=== PATIENT | female | born 1965 | race Caucasian/White ===

== ENCOUNTER 2019-02-03 08:59 | Inpatient (IN) | payer BC ==
--- NOTE | 2019-02-03 09:14 | PDOC ---
History of Present Illness - General Chief Complaint: Pain Stated Complaint: ABD PAIN Time Seen by Provider: 02/03/19 09:09 History Source: Patient Exam Limitations: No Limitations - History of Present Illness Initial Comments: 02/03/19 09:14 HPI 53 YOF with h/o Gerd, RLS presenting with generalized abdominal pain x 9 days, + bloating, loose watery stools. beginning last night, her abdominal pain worsened , after eating ukrainian food with friends, localizing more to LLQ, nonradiating, constant 8/10. A/w subjective chills and sweats. she took ibuprofen this morning with some relief able to pass gas, last BM yesterday went to PCP about 3 days ago, for surgical clearance for meniscal tear repair - at that time given reassurance, recommended Gasx, without relief. LMP 1 week ago, perimenopausal. not sexually active Denies chest pain, SOB, palpitation, dizziness, weakness, N, V, bladder and bowel problems, focal weakness/paresthesias, leg swelling/pain, rash. No sick contacts or travel. No new changes in medications. ?suspicious food intake Allergies: None Past Medical History: GERD, restless leg syndrome. PSH: C section Social history: Lives with family. No tobacco, ETOH or drug use. Meds: as documented in EMR Family history: noncontributory PMD: DiCarino Review of systems Constitutional: +subjective fevers and chills. No weakness HEENT: no headache or dizziness. No congestion. No visual/hearing disturbances. CVS: no cp or syncope. Resp: no sob. No cough. Gastrointestinal: +abdominal pain, nausea, vomiting, diarrhea. no bloody stools. Genitourinary: no urinary sx, hematuria. no urinary urgency, frequency or dysuria. MUSCULOSKELETAL: No joint pain and swelling. No neck or back pain. SKIN: no redness or skin changes, no discharge, no rash. No wounds. Hematologic: no easy bruising/bleeding. NEUROLOGIC: No headache, dizziness, LOC or altered mental status. No weakness, numbness or tingling. Allergic/Immunologic: no allergies All other systems reviewed and negative, or as documented in HPI. Physical exam General: malaised appearing, awake and alert, NAD. HEENT: NCAT, PERRL, EOMI, clear conjunctiva, anicteric, moist mucus membranes, clear oropharynx, no oral lesions.. Neck: neck supple, FROM Resp: CTAB, normal and even respirations, no respiratory distress CVS: +tachycardic, no murmurs, 2+ peripheral pulses throughout, no peripheral edema Abdomen: soft,obese, +LLQ TTP, no rebound or guarding. no CVAT. no mcburny's point tenderness. Back: nontender, normal inspection and ROM MSK: no edema, VELÁZQUEZ x4, ROM intact. No clubbing or cyanosis. normal bulk and tone. Extremities: no calf tenderness Neuro: alert, oriented appropriately Psych: Calm and cooperative Skin: warm and well perfused, cap refill <2 sec, normal color, no rash or skin discoloration. 02/03/19 10:02 02/03/19 11:07 02/03/19 12:11 02/03/19 12:13 Past History - Past Medical History Allergies/Adverse Reactions: Allergies Allergy/AdvReac Type Severity Reaction Status Date / Time No Known Allergies Allergy Verified 02/03/19 09:15 Home Medications: Ambulatory Orders Pantoprazole Sodium [Protonix -] 40 mg PO DAILY 02/03/19 Heart Score/ECG Review #1 ECG reviewed & interpreted by me at: 09:30 General ECG Interpretation: Sinus Rhythm, Normal Rate, Normal Intervals Compared to previous ECG there are: Previous ECG unavail 02/03/19 11:16 ekg nsr at 95 bpm. nonspecific t wave abnormality, no elevations or depressions. normal intervals, narrow QRS. ED Treatment Course - LABORATORY CBC & Chemistry Diagram: 02/03/19 09:45 02/03/19 09:45 Medical Decision Making - Medical Decision Making 02/03/19 11:12 Vital Signs Temp Pulse Resp BP Pulse Ox 99.0 F 110 H 16 111/59 L 97 02/03/19 09:00 02/03/19 09:00 02/03/19 09:00 02/03/19 09:00 02/03/19 09:00 DDx abdominal pain: Renal colic, biliary colic, metabolic/electrolyte derangements. GERD, PUD, esophageal spasm, pancreatitis, hepatitis, constipation , colitis, gastroenteritis, cholecystitis, UTI, pyelonephritis, ileus, SBO, medication side effect, hernia, appendicitis, diverticulitis, mesenteric ischemia. msk strain, mesenteric adenitis, psoas abscess. perforation, microperf. obstruction. peritonitis. Vital signs reviewed, low-grade temperature with tachycardia however normotensive and breathing comfortably. likely from pain, will treat. Patient with severe pain over the left lower quadrant and she already took ibuprofen this morning. Will give IV fluids, morphine for analgesia and Zofran for nausea and reassess. Basic laboratory results revealed leukocytosis 12.5K with bandemia, electrolytes and creatinine are normal. Amylase is normal, lipase is unavailable. Urinalysis without signs of infection with small protein and some epithelial cells, sedimentation and granular urine casts. 02/03/19 12:11 - CT +acute sigmoid diverticulitis with abscess formation, 4x3cm in size. surgery cs with Dr Mckeon service, spoke with Dr Hood - recommended IR drainage for the moderately sized abscess, IV abx and close monitoring/reassessment. IV Zosyn given for complicated abdominal infection with the abscess additional blood cultures and lactic drawn [facility], medical and surgical management, observation, IVF, pain control and abx. transfer to [facility] for admission warranted where IR capabilities available admitting to dr Figueroa, s/o to [facility]. 02/03/19 12:39 Discharge - Discharge Information Problems reviewed: Yes Clinical Impression/Diagnosis: Diverticulitis of intestine with abscess Qualifiers: Diverticulitis site: large intestine Diverticulitis bleeding: unspecified bleeding status Qualified Code(s): K57.20 - Diverticulitis of large intestine with perforation and abscess without bleeding Condition: Guarded - Admission Yes - Follow up/Referral Referrals: Brandon Morales [Primary Care Provider] - - Patient Discharge Instructions - Post Discharge Activity
[2019-02-03 10:11] LABS: HEMATOCRIT 38.5 % (32.4-45.2); HEMOGLOBIN 12.7 GM/dl (10.7-15.3); MCH 30.5 pg (25.7-33.7); MEAN CELL VOLUME 92.3 fl (80-96); PLATELET COUNT 243 K/MM3 (134-434); RBC 4.17 M/mm3 (3.60-5.2); RDW 11.8 % (11.6-15.6); WHITE BLOOD COUNT 12.5 K/mm3 (4.0-10.8)
[2019-02-03 10:15] LABS: ALBUMIN 3.7 g/dl (3.4-5.0); BILIRUBIN,TOTAL 0.7 mg/dl (0.2-1); CALCIUM 9.3 mg/dl (8.5-10); CREATININE 0.6 mg/dl (0.55-1.3); POTASSIUM 3.9 mmol/L (3.5-5.1); TOT PROT 6.8 g/dl (6.4-8.2)
[2019-02-03 10:24] LABS: EPITHELIAL CELLS MODERATE /hpf
[2019-02-03 10:26] LABS: URINE AMORPHOUS SEDIMENT 2+
[2019-02-03] MEDS ORDERED: SODIUM CHLORIDE 0.9% 500 ML INFUS.BAG IV ONE (10:40)
[2019-02-03] MEDS ORDERED: morphine CARPU-JECT 4 MG/1 ML DISP.SYRIN IVPUSH ONE ×2 (10:40→13:46)
[2019-02-03] MEDS ORDERED: ONDANSETRON 4 MG/2 ML VIAL IVPUSH ONE (10:40)
[2019-02-03] MEDS ORDERED: morphine SULFATE 4 MG/ML VIAL ONE ×2 (10:41→13:47)
[2019-02-03] MEDS ORDERED: ONDANSETRON 4 MG/2 ML VIAL ONE (10:42)
[2019-02-03 10:49] LABS: PLATELET ESTIMATE ADEQUATE
[2019-02-03] MEDS ORDERED: ACETAMINOPHEN 1000 MG/100 ML VIAL (NON FORMULARY) IVPB ONE (11:31)
[2019-02-03] MEDS ORDERED: ACETAMINOPHEN INJECTION 100 ML IVPB ONE (11:33)
[2019-02-03] MEDS ORDERED: PIPERACILLIN/TAZOB 4.5 GM 4.5 GM in DEXTROSE 5%-WATER 100 ML IVPB ONE (11:46)
[2019-02-03] MEDS ORDERED: PIPERACILLIN/TAZOBACTAM 4.5 GM VIAL IVPB ONE (12:16)
--- NOTE | 2019-02-03 12:25 | PN ---
Progress Note (short form) - Note Progress Note: surgery Full eval to follow. 53f with ct showing presumed complicated diverticulitis with 4cm abscess. recommend IR eval for drainage of abscess. no fever. no free air. recommend zosyn abx. keep npo.
--- NOTE | 2019-02-03 13:00 | HP ---
CHIEF COMPLAINT:Abdominal pain PCP: HISTORY OF PRESENT ILLNESS: Joceline Soto is a 53 yr old F, medical condition h/o Gerd, RLS presented to ED with generalized abdominal pain x 9 days, +bloating, loose watery stools last night. pt reports seeing PCP last week, was told to take Gas-x, with no improvement, pain worsened after eating Latvian food last night. CT scan reviewed by surgery, and IR, pt will be transferred to [facility], if needed for IR drainage. ER course was notable for: (1)WBC 12.5 (2)CT abd/pelvis: 4.1x2.9 diverticulitis, abscess vs ovarian cyst (3) Recent Travel: PAST MEDICAL HISTORY: GERD, RLS PAST SURGICAL HISTORY: , Melonoma removal 2013 Social History: Smoking:denies Alcohol:denies Drugs: denies Allergies No Known Allergies Allergy (Verified 02/03/19 09:15) HOME MEDICATIONS: Home Medications Medication Instructions Recorded Pantoprazole Sodium [Protonix -] 40 mg PO DAILY 02/03/19 REVIEW OF SYSTEMS CONSTITUTIONAL: +chills Absent: fever, diaphoresis, generalized weakness, malaise, loss of appetite, weight change HEENT: Absent: rhinorrhea, nasal congestion, throat pain, throat swelling, difficulty swallowing, mouth swelling, ear pain, eye pain, visual changes CARDIOVASCULAR: Absent: chest pain, syncope, palpitations, irregular heart rate, lightheadedness , peripheral edema RESPIRATORY: Absent: cough, shortness of breath, dyspnea with exertion, orthopnea, wheezing, stridor, hemoptysis GASTROINTESTINAL:+abd pain, diarrhea x1 Absent: abdominal distension, nausea, vomiting, constipation, melena, hematochezia GENITOURINARY: Absent: dysuria, frequency, urgency, hesitancy, hematuria, flank pain, genital pain MUSCULOSKELETAL: Absent: myalgia, arthralgia, joint swelling, back pain, neck pain SKIN: Absent: rash, itching, pallor HEMATOLOGIC/IMMUNOLOGIC: Absent: easy bleeding, easy bruising, lymphadenopathy, frequent infections ENDOCRINE: Absent: unexplained weight gain, unexplained weight loss, heat intolerance, cold intolerance NEUROLOGIC: Absent: headache, focal weakness or paresthesias, dizziness, unsteady gait, seizure, mental status changes, bladder or bowel incontinence PSYCHIATRIC: Absent: anxiety, depression, suicidal or homicidal ideation, hallucinations. PHYSICAL EXAMINATION Vital Signs - 24 hr 02/03/19 02/03/19 09:00 11:20 Temperature 99.0 F 99.8 F H Pulse Rate 110 H Pulse Rate [ 94 H Left Radial] Respiratory 16 16 Rate Blood Pressure 111/59 L Blood Pressure 142/78 [Right Arm] O2 Sat by Pulse 97 95 Oximetry (%) GENERAL: Awake, alert, and fully oriented, in no acute distress. HEAD: Normal with no signs of trauma. EYES: Pupils equal, round and reactive to light, extraocular movements intact, sclera anicteric, conjunctiva clear. No lid lag. EARS, NOSE, THROAT: Ears normal, nares patent, oropharynx clear without exudates. Moist mucous membranes. NECK: Normal range of motion, supple without lymphadenopathy, JVD, or masses. LUNGS: Breath sounds equal, clear to auscultation bilaterally. No wheezes, and no crackles. No accessory muscle use. HEART: Regular rate and rhythm, normal S1 and S2 without murmur, rub or gallop. ABDOMEN: Soft, nontender, not distended, normoactive bowel sounds, no guarding, no rebound, no masses. No hepatomegaly or splenomegaly. MUSCULOSKELETAL: Normal range of motion at all joints. No bony deformities or tenderness. No CVA tenderness. UPPER EXTREMITIES: 2+ pulses, warm, well-perfused. No cyanosis. No clubbing. No peripheral edema. LOWER EXTREMITIES: 2+ pulses, warm, well-perfused. No calf tenderness. No peripheral edema. NEUROLOGICAL: Cranial nerves II-XII intact. Normal speech. Normal gait. PSYCHIATRIC: Cooperative. Good eye contact. Appropriate mood and affect. SKIN: Warm, dry, normal turgor, no rashes or lesions noted, normal capillary refill. Laboratory Results - last 24 hr 02/03/19 02/03/19 02/03/19 09:32 09:45 09:45 WBC RBC Hgb Hct MCV MCH MCHC RDW Plt Count MPV Absolute Neuts (auto) Neutrophils % Neutrophils % (Manual) Band Neutrophils % Lymphocytes % Lymphocytes % (Manual) Monocytes % (Manual) Basophils % (Manual) Platelet Estimate Sodium Potassium Chloride Carbon Dioxide Anion Gap BUN Creatinine Est GFR (CKD-EPI)AfAm Est GFR (CKD-EPI)NonAf Random Glucose Calcium Total Bilirubin AST ALT Alkaline Phosphatase Creatine Kinase Troponin I < 0.03 Total Protein Albumin Total Amylase 29 Urine Color Yellow Urine Appearance Clear Urine pH 7.0 Urine Protein 1+ H Urine Glucose (UA) Negative Urine Ketones Negative Urine Blood Trace-intact Urine Nitrite Negative Urine Bilirubin Negative Urine Urobilinogen 0.2 Ur Leukocyte Esterase Negative Urine RBC 2-5 Urine WBC 0-2 Ur Transition Epith Cell Moderate Amorphous Sediment 2+ Urine Casts Coarsly granular 0-1 02/03/19 02/03/19 09:45 09:45 WBC 12.5 H RBC 4.17 Hgb 12.7 Hct 38.5 MCV 92.3 MCH 30.5 MCHC 33.0 RDW 11.8 Plt Count 243 MPV 9.0 Absolute Neuts (auto) 11.2 Neutrophils % No Result Required. Neutrophils % (Manual) 72.0 Band Neutrophils % 16.0 H Lymphocytes % No Result Required. Lymphocytes % (Manual) 4.0 L Monocytes % (Manual) 6 Basophils % (Manual) 2.0 Platelet Estimate Adequate Sodium 134 L Potassium 3.9 Chloride 104 Carbon Dioxide 21 Anion Gap 9 BUN 11.0 Creatinine 0.6 Est GFR (CKD-EPI)AfAm 122.32 Est GFR (CKD-EPI)NonAf 105.54 Random Glucose 144 H Calcium 9.3 Total Bilirubin 0.7 AST 16 ALT 17 Alkaline Phosphatase 96 Creatine Kinase 75 Troponin I Total Protein 6.8 Albumin 3.7 Total Amylase Urine Color Urine Appearance Urine pH Urine Protein Urine Glucose (UA) Urine Ketones Urine Blood Urine Nitrite Urine Bilirubin Urine Urobilinogen Ur Leukocyte Esterase Urine RBC Urine WBC Ur Transition Epith Cell Amorphous Sediment Urine Casts ASSESSMENT/PLAN: Joceline Soto is a 53 yr old F, medical condition h/o Gerd, RLS admitted for Admitting Diagnosis Diverticulitis w/abscess vs ovarian cyst Chronic Condition GERD A/P: #Diverticulitis w/abscess vs ovarian cyst -Trf to [facility] -NPO -IVF -pain mgt, antiemetics -IV zosyn -surgery note appreciated -CT reviewed by IR-no acute IR or surgical intervention at this time -blood cx pending -Pelvic US #GERD -IV PPI FEN Fluid: IVF electrolytes replete PRN Nutrition: NPO Dispo: requires inpatient treatment Visit type - Emergency Visit Emergency Visit: Yes Care time: The patient presented to the Emergency Department on the above date and was hospitalized for further evaluation of their emergent condition. - New Patient This patient is new to me today: Yes Date on this admission: 02/03/19 - Critical Care Critical Care patient: No
[2019-02-03] MEDS ORDERED: SODIUM CHLORIDE 1,000 ML IV SCH (13:30)
[2019-02-03 16:56] VITALS: BMI 35.3
[2019-02-03] MEDS: MORPHINE SULFATE 2 MG/ML VIAL IVPUSH PRN ×2 (17:11→22:38)
[2019-02-03] MEDS ORDERED: PIPERACILLIN/TAZOB 2.25 GM 2.25 GM in DEXTROSE 5%-WATER - 50 ML IVPB SCH (18:00)
[2019-02-03] MEDS ORDERED: DEXTROSE 5%-WATER - 50 ML IVPB ONE (19:56)
[2019-02-03] MEDS ORDERED: PIPERACILLIN/TAZOBACTAM 2.25 GM VIAL IVPB ONE (19:56)
[2019-02-03] MEDS: ACETAMINOPHEN 325 MG TABLET (FP) PO PRN (20:01)
[2019-02-03] MEDS: PIPERACILLIN/TAZOB 2.25 GM 2.25 GM in DEXTROSE 5%-WATER - 50 ML IVPB SCH (20:02)
[2019-02-03] MEDS: HEPARIN NA (PORCINE) 5,000 UNITS/ML 1ML VIAL SQ SCH (21:10)
[2019-02-04] MEDS: ACETAMINOPHEN 325 MG TABLET (FP) PO PRN ×4 (01:02→19:52)
[2019-02-04] MEDS ORDERED: PIPERACILLIN/TAZOBACTAM 2.25 GM VIAL IVPB ONE ×2 (02:31→12:19)
[2019-02-04] MEDS ORDERED: DEXTROSE 5%-WATER - 50 ML IVPB ONE ×3 (02:32→17:59)
[2019-02-04] MEDS: PIPERACILLIN/TAZOB 2.25 GM 2.25 GM in DEXTROSE 5%-WATER - 50 ML IVPB SCH ×2 (03:04→12:28)
[2019-02-04] MEDS: morphine CARPU-JECT 2 MG/1 ML DISP.SYRIN IVPUSH PRN ×4 (05:51→23:24)
[2019-02-04 08:14] LABS: EOS % 0.7 % (0-4.5); HEMATOCRIT 31.9 % (32.4-45.2); HEMOGLOBIN 11.3 GM/dl (10.7-15.3); LYMPH % 10.3 % (8-40); MCH 32.6 pg (25.7-33.7); MCHC 35.2 g/dl (32.0-36.0); MEAN CELL VOLUME 92.5 fl (80-96); MEAN PLT VOLUME 8.8 fl (7.5-11.1); MONO % 6.6 % (3.8-10.2); NEUT % 82.4 % (42.8-82.8); PLATELET COUNT 194 K/MM3 (134-434); RBC 3.45 M/mm3 (3.60-5.2); RDW 11.7 % (11.6-15.6); WHITE BLOOD COUNT 10.3 K/mm3 (4.0-10.8)
[2019-02-04 08:25] LABS: ALBUMIN 2.7 g/dl (3.4-5.0); BILIRUBIN,TOTAL 0.8 mg/dl (0.2-1); CALCIUM 7.8 mg/dl (8.5-10); CREATININE 0.6 mg/dl (0.55-1.3); MAGNESIUM 1.7 mg/dL (1.8-2.4); POTASSIUM 3.7 mmol/L (3.5-5.1); TOT PROT 5.4 g/dl (6.4-8.2)
--- NOTE | 2019-02-04 08:27 | PN ---
Physical Exam: SUBJECTIVE: Patient seen and examined. No further CP. No O2 use or desats. Refuses further tele, refuses pred. OK to DC per pulm. Unlikely pericarditis based on EKG prelim CT. 10 sys ROS done and negative aside from HPI OBJECTIVE: Vital Signs Period Temp Pulse Resp BP Sys/Flor Pulse Ox Last 24 Hr 98.5 F-99.8 F 78-110 15-19 100-142/51-78 95-97 GENERAL: The patient is awake, alert, and fully oriented, in no acute distress. HEAD: Normal with no signs of trauma. EYES: PERRL, extraocular movements intact, sclera anicteric, conjunctiva clear. No ptosis. ENT: Ears normal, nares patent, oropharynx clear without exudates, moist mucous membranes. NECK: Trachea midline, full range of motion, supple. LUNGS: Breath sounds equal, clear to auscultation bilaterally, no wheezes, no crackles, no accessory muscle use. HEART: Regular rate and rhythm, S1, S2 without murmur, rub or gallop. ABDOMEN: Soft, nontender, nondistended, normoactive bowel sounds, no guarding, no rebound EXTREMITIES: 2+ pulses, warm, well-perfused, no edema. NEUROLOGICAL: Cranial nerves II through XII grossly intact. Normal speech, gait not observed. PSYCH: Normal mood, normal affect. SKIN: Warm, dry, normal turgor, no rashes or lesions noted Laboratory Results - last 24 hr 02/03/19 02/03/19 02/03/19 09:32 09:45 09:45 WBC RBC Hgb Hct MCV MCH MCHC RDW Plt Count MPV Absolute Neuts (auto) Neutrophils % Neutrophils % (Manual) Band Neutrophils % Lymphocytes % Lymphocytes % (Manual) Monocytes % (Manual) Basophils % (Manual) Platelet Estimate Sodium Potassium Chloride Carbon Dioxide Anion Gap BUN Creatinine Est GFR (CKD-EPI)AfAm Est GFR (CKD-EPI)NonAf Random Glucose Lactic Acid Calcium Total Bilirubin AST ALT Alkaline Phosphatase Creatine Kinase Troponin I < 0.03 Total Protein Albumin Total Amylase 29 Urine Color Yellow Urine Appearance Clear Urine pH 7.0 Urine Protein 1+ H Urine Glucose (UA) Negative Urine Ketones Negative Urine Blood Trace-intact Urine Nitrite Negative Urine Bilirubin Negative Urine Urobilinogen 0.2 Ur Leukocyte Esterase Negative Urine RBC 2-5 Urine WBC 0-2 Ur Transition Epith Cell Moderate Amorphous Sediment 2+ Urine Casts Coarsly granular 0-1 02/03/19 02/03/19 02/03/19 09:45 09:45 12:10 WBC 12.5 H RBC 4.17 Hgb 12.7 Hct 38.5 MCV 92.3 MCH 30.5 MCHC 33.0 RDW 11.8 Plt Count 243 MPV 9.0 Absolute Neuts (auto) 11.2 Neutrophils % No Result Required. Neutrophils % (Manual) 72.0 Band Neutrophils % 16.0 H Lymphocytes % No Result Required. Lymphocytes % (Manual) 4.0 L Monocytes % (Manual) 6 Basophils % (Manual) 2.0 Platelet Estimate Adequate Sodium 134 L Potassium 3.9 Chloride 104 Carbon Dioxide 21 Anion Gap 9 BUN 11.0 Creatinine 0.6 Est GFR (CKD-EPI)AfAm 122.32 Est GFR (CKD-EPI)NonAf 105.54 Random Glucose 144 H Lactic Acid 1.0 Calcium 9.3 Total Bilirubin 0.7 AST 16 ALT 17 Alkaline Phosphatase 96 Creatine Kinase 75 Troponin I Total Protein 6.8 Albumin 3.7 Total Amylase Urine Color Urine Appearance Urine pH Urine Protein Urine Glucose (UA) Urine Ketones Urine Blood Urine Nitrite Urine Bilirubin Urine Urobilinogen Ur Leukocyte Esterase Urine RBC Urine WBC Ur Transition Epith Cell Amorphous Sediment Urine Casts Active Medications Generic Name Dose Route Start Last Admin Trade Name Freq PRN Reason Stop Dose Admin Acetaminophen 650 mg 02/03/19 15:40 02/04/19 06:17 Tylenol - PO 650 mg Q6H PRN Administration FEVER Heparin Sodium (Porcine) 5,000 unit 02/03/19 22:00 02/03/19 21:10 Heparin - SQ 5,000 unit BID MARILUZ Administration Sodium Chloride 1,000 mls @ 100 mls/hr 02/03/19 13:30 02/03/19 13:15 Normal Saline - IV 100 mls/hr ASDIR MARILUZ Administration Piperacillin Sod/Tazobactam 50 mls @ 100 mls/hr 02/03/19 18:00 Sod 2.25 gm/ Dextrose IVPB Q8H-IV MARILUZ Protocol Piperacillin Sod/Tazobactam 50 mls @ 100 mls/hr 02/03/19 20:00 02/04/19 03:04 Sod 2.25 gm/ Dextrose IVPB 02/04/19 12:29 100 mls/hr Q8H MARILUZ Administration Protocol Morphine Sulfate 2 mg 02/03/19 22:32 02/04/19 05:51 Morphine Injection - IVPUSH 2 mg Q4H PRN Administration PAIN LEVEL 6-10 Pantoprazole Sodium 40 mg 02/04/19 10:00 Protonix Iv IVPUSH DAILY MARILUZ EKG reviewed Tele reviewed CXR reviewed CT pending final read Echo pending ASSESSMENT/PLAN: Presents with atypical CP (resolved) with concerns of pericarditis (less likely based on clinical picture). Likely underlying COPD. R/O pleurisy associated with PNA (would be CAP-QTc OK). No home PFTs, no home digital marketing specialist. Chronic leukocytosis and stated RF+; checking and will offer rheum consult with Dr. Dixon. She declined steroids and scheduled nebs for likely underlying COPD and has albuterol available at home that is not used up and within expiry. Problems include: -Atypical CP, resolved. Less likely ACS, pericarditis. Consider pleurisy. Incentive moose. Declinmes further tele. Not reproducible. FU echo. CE's negative. -Likely CAP; FU final CT read. -Morbid Obesity (BMI >35; counseled) -Tobacco Abuse (Counsled) -Stated RA+ (checking ESR CRP BHARAT RF; OFFERED RHEUM CONSULT) -Likely COPD (Has home albuterol available but doesn't like using it; needs OP PFTs. Declined steroid tx. FU final pulm recs) -R/O LEVI -R/O Pickwickian Syndrome Full Code Visit type - Emergency Visit Emergency Visit: Yes ED Registration Date: 02/03/19 Care time: The patient presented to the Emergency Department on the above date and was hospitalized for further evaluation of their emergent condition. - New Patient This patient is new to me today: Yes Date on this admission: 02/04/19 - Critical Care Critical Care patient: No
[2019-02-04 09:36] LABS: INR 1.52 (0.82-1.09); PROTHROMBIN TIME (PATIENT) 16.9 SEC (10.2-13.0)
[2019-02-04] MEDS ORDERED: MAGNESIUM SULF 50% (8.12 MEQ/2 ML-1 GM VIAL) IVPB ONE (09:45)
[2019-02-04] MEDS: LACTATED RINGERS SOLUTION 1,000 ML/1,000 ML INFUS.BAG IV SCH (09:56)
[2019-02-04] MEDS: PANTOPRAZOLE SODIUM 40 MG VIAL IVPUSH SCH (10:05)
[2019-02-04] MEDS: HEPARIN NA (PORCINE) 5,000 UNITS/ML 1ML VIAL SQ SCH ×2 (10:05→21:04)
--- NOTE | 2019-02-04 11:57 | EKG ---
Test Reason : Blood Pressure : / mmHG Vent. Rate : 095 BPM Atrial Rate : 095 BPM P-R Int : 158 ms QRS Dur : 092 ms QT Int : 338 ms P-R-T Axes : 056 013 029 degrees QTc Int : 424 ms NORMAL SINUS RHYTHM NONSPECIFIC ST ABNORMALITY ABNORMAL ECG NO PREVIOUS ECGS AVAILABLE Confirmed by HETAL MERLOS, MARY ([id number]) on 02/04/2019 11:57:40 AM Referred By: NICK HOLT Confirmed By:MARY FONG MD
--- NOTE | 2019-02-04 14:47 | CON.ID ---
Consult Consult Specialty:: infectious diseases Referred by:: Reason for Consultation:: ac diverticulitis - History of Present Illness Chief Complaint: abd pain left lower quadrant History of Present Illness: 53 yr old F, medical condition h/o Gerd, RLS admitted because of ongoing left lower quadrant pain for 9 days pt reports seeing PCP last week, was told to take Gas-x, with no improvement, pain worsened after eating Spanish food last night. patient mentions that she became very uncomfortable currently continues to hav abd pain with essentially no gi function was worked up and found to ahve ac diverticulitis with abscess formation - History Source History Provided By: Patient Limitations to Obtaining History: No Limitations - Past Medical History ...: No - Alcohol/Substance Use Hx Alcohol Use: No - Smoking History Smoking history: Former smoker Have you smoked in the past 12 months: No If you are a former smoker, when did you quit?: 2005 Home Medications - Allergies Allergies/Adverse Reactions: Allergies Allergy/AdvReac Type Severity Reaction Status Date / Time No Known Allergies Allergy Verified 02/03/19 09:15 - Home Medications Home Medications: Ambulatory Orders Pantoprazole Sodium [Protonix -] 40 mg PO DAILY 02/03/19 Review of Systems - Review of Systems Constitutional: reports: No Symptoms Eyes: reports: No Symptoms HENT: reports: No Symptoms Neck: reports: No Symptoms Cardiovascular: reports: No Symptoms Respiratory: reports: No Symptoms Gastrointestinal: reports: Abdominal Pain, Diarrhea Genitourinary: reports: No Symptoms Musculoskeletal: reports: No Symptoms Integumentary: reports: No Symptoms Neurological: reports: No Symptoms Endocrine: reports: No Symptoms Hematology/Lymphatic: reports: No Symptoms Psychiatric: reports: No Symptoms Physical Exam Vital Signs: Vital Signs Temperature 99.9 F H 02/04/19 13:58 Pulse Rate 89 02/04/19 13:58 Respiratory Rate 18 02/04/19 13:58 Blood Pressure 107/62 02/04/19 13:58 O2 Sat by Pulse Oximetry (%) 98 02/04/19 13:58 Constitutional: Yes: Well Nourished, Calm, Mild Distress Eyes: Yes: Conjunctiva Clear HENT: Yes: Atraumatic, Normocephalic Neck: Yes: Supple, Trachea Midline Cardiovascular: Yes: Regular Rate and Rhythm Respiratory: Yes: Regular, CTA Bilaterally Gastrointestinal: Yes: Soft, Distention, Tenderness, Other (absent bowel sounds) Musculoskeletal: Yes: WNL Extremities: Yes: WNL Neurological: Yes: Alert, Oriented Psychiatric: Yes: Alert, Oriented Labs: CBC, BMP 02/04/19 07:05 02/04/19 07:05 Imaging - Results Chest X-ray: Report Reviewed, Image Reviewed Cat Scan: Report Reviewed, Image Reviewed Ultrasound: Report Reviewed, Image Reviewed Assessment/Plan patients ct scan seen, will continue zosyn npo surgery ahs seen the patient monitor wbc rest as per the team
[2019-02-04] MEDS ORDERED: PIPERACILLIN/TAZOBACTAM 3.375 GM VIAL IVPB ONE (17:59)
--- NOTE | 2019-02-04 18:23 | CONS ---
DATE OF CONSULTATION: 02/04/2019 REASON FOR CONSULTATION: Complicated diverticulitis. This is an emergency consultation at the request of the emergency room physician. This is a 53-year-old female who presented to [facility] complaining of 9 days of abdominal pain that began on the left side in the lower portion, that is now in the lower abdomen. She admits to bloating. Denies diarrhea. Denies constipation. Denies blood in her stool. She came to the [facility] where she had a CAT scan of her abdomen and pelvis which showed an inflamed sigmoid colon with multiple diverticula, plus also a complex collection next to the sigmoid colon which was felt to either be a complex ovarian cyst or a diverticular abscess. She was admitted and started on antibiotic. Her pain has improved, but still persists, and an ultrasound suggested that the collection was actually an ovarian cyst and not a diverticular abscess. The patient has had no fever, and she has been kept n.p.o. PAST MEDICAL HISTORY: Significant for gastroesophageal reflux disease and restless leg syndrome. PAST SURGICAL HISTORY: Includes a section and melanoma surgery for cancer. SOCIAL HISTORY: Negative for tobacco, negative for alcohol. ALLERGIES: She has no known drug allergies. HOME MEDICATION: Includes Protonix. REVIEW OF SYSTEMS: General: Denies fatigue or malaise. Cardiac: Denies chest pain or palpitations. Respiratory: No shortness of breath or wheeze. Gastrointestinal: As in HPI. Denies nausea. Denies vomiting. Admits to intermittent abdominal pain that then dissipates with pain medication. Genitourinary: Denies dysuria. Musculoskeletal: Denies joint pain. Psychiatric: Denies anxiety, depression, hearing voices. PHYSICAL EXAMINATION: General: This is an obese, 53-year-old female in no distress. Vital Signs: She is afebrile with a T-max of 99.9. HEENT: Her head is normocephalic. Her sclerae are anicteric. Neck: Supple. Chest: Clear. Abdomen: Soft. She has mild left lower quadrant tenderness and moderate right lower quadrant tenderness. She has mild rebound bilateral and mild guarding. She has a well-healed Pfannenstiel incision. She has no obvious hernias. She is not distended. Extremities: Trace edema. LABORATORY DATA: Her white blood cell count is 10.3. It was 12.5 on admission. She had elevated bands on admission at 16. Her chemistries are unremarkable. Her urinalysis has only 0-2 white blood cells. On review of her imaging, she has a CAT scan of her abdomen and pelvis which was as stated in HPI. She also has a pelvic ultrasound which shows an enlarged left ovary and a poorly visualized cyst measuring 2.3 x 1.5 cm. This is a change from prior evaluation of the cyst on CAT scan, and the radiologist cannot rule out a complex cyst and recommends MRI. ASSESSMENT: This is a 53-year-old female with a [id number]-8-week history of lower abdominal pain. She has peritoneal findings in the lower abdomen. She has a CAT scan consistent with possible complicated diverticulitis, but ultrasound suggests that this is actually just uncomplicated diverticulitis with a possible complex adnexal cyst. At this point, since this is her first attack of diverticulitis, would not recommend elective surgery, especially since this is not confirmed to be complex. Patient currently seems to be responding to antibiotics. I would recommend that she be kept n.p.o. until her tenderness resolves. She will likely need several days of intravenous antibiotics and then 1 week of Augmentin. She has not had a colonoscopy in the past, and therefore, there is a possibility that this is actually a malignancy. Patient understands this. She realizes that she will need a colonoscopy in 6 weeks' time. She has also been offered exploratory surgery to confirm that this is not a colon cancer and to better evaluate the complex collection next to the sigmoid colon and she declines. She understands that surgery would be done open and would require a colostomy. She is willing to risk the delay in diagnosis in order to hope to avoid a laparotomy and a colostomy. At this point, she is non-toxic. Again, recommend keep n.p.o., continue IV Zosyn. Once her tenderness resolves, she can be started on a liquid diet and likely discharged at that point if she is tolerating. She should stay on liquids for a week with 1 week of Augmentin and then needs an elective colonoscopy. Currently, she will be treated for uncomplicated diverticulitis, and there are no plans for acute inpatient surgical intervention. Since this has not been shown to be a complicated case and this is first episode, would not recommend elective sigmoid colectomy as well. As far as the ovary, that is to be managed by the medical and PROMOTIONS ASSISTANT services. DO KYMBERLY KEENAN/[id number]
[2019-02-04] MEDS: PIPERACILLIN/TAZOB 3.375 GM 3.375 GM in DEXTROSE 5%-WATER - 50 ML IVPB SCH (18:33)
--- NOTE | 2019-02-04 18:53 | PN ---
Physical Exam: SUBJECTIVE: Patient seen and examined; persistent abdominal pain but nothing makes it better or worse except APAP IV; she states that the morphine was less helpful. Pending transvaginal US and further surgery eval. No new complaints noted; denies CP, SOB, etc. If positive US findings may need PHARMACY TECHNICIAN ASSISTANT referral. Also has never had C-Scope so will need OP study in 6-8 weeks and will need FU with GI arranged prior to DC. No new issues per nursing. Stable. 10 sys ROS done and negative aside from HPI OBJECTIVE: Vital Signs Period Temp Pulse Resp BP Sys/Flor Pulse Ox Last 24 Hr 98.5 F-99.9 F 84-93 16-19 103-135/52-69 96-98 GENERAL: The patient is awake, alert, and fully oriented, in no acute distress. HEAD: Normal with no signs of trauma. EYES: PERRL, extraocular movements intact, sclera anicteric, conjunctiva clear. No ptosis. ENT: Ears normal, nares patent, oropharynx clear without exudates, moist mucous membranes. NECK: Trachea midline, full range of motion, supple. LUNGS: Breath sounds equal, clear to auscultation bilaterally HEART: Regular rate and rhythm, S1, S2 without murmur, rub or gallop. ABDOMEN: Soft, TTP lower quadrants. No rebound or guarding. EXTREMITIES: 2+ pulses, warm, well-perfused, no edema. NEUROLOGICAL: Cranial nerves II through XII grossly intact PSYCH: Normal mood, normal affect. SKIN: Warm, dry, normal turgor, no rashes or lesions noted Laboratory Results - last 24 hr 02/04/19 02/04/19 02/04/19 07:05 07:05 08:57 WBC 10.3 RBC 3.45 L Hgb 11.3 Hct 31.9 L D MCV 92.5 MCH 32.6 MCHC 35.2 RDW 11.7 Plt Count 194 MPV 8.8 Absolute Neuts (auto) 8.4 Neutrophils % 82.4 Lymphocytes % 10.3 Monocytes % 6.6 Eosinophils % 0.7 Basophils % 0.0 ESR PT with INR 16.9 H INR 1.52 H Sodium 137 Potassium 3.7 Chloride 105 Carbon Dioxide 23 Anion Gap 9 BUN 7.0 Creatinine 0.6 Est GFR (CKD-EPI)AfAm 122.32 Est GFR (CKD-EPI)NonAf 105.54 Random Glucose 98 Calcium 7.8 L Magnesium 1.7 L Total Bilirubin 0.8 AST 11 L ALT 13 Alkaline Phosphatase 72 D C-Reactive Protein Total Protein 5.4 L Albumin 2.7 L Blood Type Antibody Screen 02/04/19 02/04/19 02/04/19 08:57 08:57 08:57 WBC RBC Hgb Hct MCV MCH MCHC RDW Plt Count MPV Absolute Neuts (auto) Neutrophils % Lymphocytes % Monocytes % Eosinophils % Basophils % ESR 34 H PT with INR INR Sodium Potassium Chloride Carbon Dioxide Anion Gap BUN Creatinine Est GFR (CKD-EPI)AfAm Est GFR (CKD-EPI)NonAf Random Glucose Calcium Magnesium Total Bilirubin AST ALT Alkaline Phosphatase C-Reactive Protein 19.1 H Total Protein Albumin Blood Type O POSITIVE Antibody Screen Negative Active Medications Generic Name Dose Route Start Last Admin Trade Name Freq PRN Reason Stop Dose Admin Acetaminophen 650 mg 02/03/19 15:40 02/04/19 12:53 Tylenol - PO 650 mg Q6H PRN Administration FEVER Heparin Sodium (Porcine) 5,000 unit 02/03/19 22:00 02/04/19 10:05 Heparin - SQ 5,000 unit BID MARILUZ Administration Lactated Ringer's 1,000 ml in 1,000 mls @ 100 mls/hr 02/04/19 08:45 02/04/19 09:56 Lactated Ringers Solution IV 100 mls/hr ASDIR MARILUZ Administration Piperacillin Sod/Tazobactam 50 mls @ 100 mls/hr 02/04/19 18:00 02/04/19 18:33 Sod 3.375 gm/ Dextrose IVPB 100 mls/hr Q8H-IV MARILUZ Administration Protocol Morphine Sulfate 2 mg 02/03/19 22:32 02/04/19 17:10 Morphine Injection - IVPUSH 2 mg Q4H PRN Administration PAIN LEVEL 6-10 Pantoprazole Sodium 40 mg 02/04/19 10:00 02/04/19 10:05 Protonix Iv IVPUSH 40 mg DAILY MARILUZ Administration TVU final read pending; complete Pelvic US pending RUQ US pending-likely steatosis ASSESSMENT/PLAN: Patient presents with abdominal pain and is found to have diverticulitis with abscess vs. uncomplicated diverticulitis with likely ovarian cyst, etc. Needs better delineation of anatomy so will FU US studies. No need to repeat CT at this juncture. IV APAP for pain control. If abnormalities noted on US will consult OBGYN. Problems include: -Diverticulitis (Initial episode +/- abscess; sgy following. IV abx then PO; advance diet per surgical services. Monitor CBC, coags. Type and Screen if going to OR. R/O pelvic etiology of abscess) -Ovarian cyst vs. 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 Full Code Visit type - Emergency Visit Emergency Visit: Yes ED Registration Date: 02/03/19 Care time: The patient presented to the Emergency Department on the above date and was hospitalized for further evaluation of their emergent condition. - New Patient This patient is new to me today: Yes Date on this admission: 02/04/19 - Critical Care Critical Care patient: No
[2019-02-05] MEDS ORDERED: PIPERACILLIN/TAZOBACTAM 3.375 GM VIAL IVPB ONE ×3 (01:27→17:15)
[2019-02-05] MEDS ORDERED: DEXTROSE 5%-WATER - 50 ML IVPB ONE ×3 (01:27→17:15)
[2019-02-05] MEDS: PIPERACILLIN/TAZOB 3.375 GM 3.375 GM in DEXTROSE 5%-WATER - 50 ML IVPB SCH ×3 (01:42→17:23)
[2019-02-05] MEDS: ACETAMINOPHEN 325 MG TABLET (FP) PO PRN ×3 (07:13→23:59)
[2019-02-05] MEDS: HEPARIN NA (PORCINE) 5,000 UNITS/ML 1ML VIAL SQ SCH ×2 (09:20→21:15)
[2019-02-05] MEDS: PANTOPRAZOLE SODIUM 40 MG VIAL IVPUSH SCH (09:20)
[2019-02-05] MEDS: LACTATED RINGERS SOLUTION 1,000 ML/1,000 ML INFUS.BAG IV SCH (10:12)
--- NOTE | 2019-02-05 10:33 | PN ---
Progress Note (short form) - Note Progress Note: surgery pt seen and examined. feels better. minimal pain. hungry. some flatus. no bm afebrile abd -soft, mild llq tenderness, minimal rlq tenderness Plan- uncomplicated diverticulitis. cont npo until tenderness resolved. cont iv abx. pt slowly improving. once tenderness resolves would do one week of full liquids. no need for elective resection if medical management successful. possible complex left ovarian cyst with radiology recs fo4 MRI. per medical team.
--- NOTE | 2019-02-05 13:43 | PN ---
Progress Note, Physician History of Present Illness: still very tender feeling a bit better - Current Medication List Current Medications: Active Medications Acetaminophen (Tylenol -) 650 mg PO Q6H PRN PRN Reason: FEVER Last Admin: 02/05/19 07:13 Dose: 650 mg Heparin Sodium (Porcine) (Heparin -) 5,000 unit SQ BID MARILUZ Last Admin: 02/05/19 09:20 Dose: 5,000 unit Lactated Ringer's (Lactated Ringers Solution) 1,000 ml in 1,000 mls @ 100 mls/ hr IV ASDIR MARILUZ Last Admin: 02/05/19 10:12 Dose: 100 mls/hr Piperacillin Sod/Tazobactam (Sod 3.375 gm/ Dextrose) 50 mls @ 100 mls/hr IVPB Q8H-IV MARILUZ; Protocol Last Admin: 02/05/19 09:20 Dose: 100 mls/hr Morphine Sulfate (Morphine Injection -) 2 mg IVPUSH Q4H PRN PRN Reason: PAIN LEVEL 6-10 Last Admin: 02/04/19 23:24 Dose: 2 mg Pantoprazole Sodium (Protonix Iv) 40 mg IVPUSH DAILY [facility] Last Admin: 02/05/19 09:20 Dose: 40 mg - Objective Vital Signs: Vital Signs Temperature 98.7 F 02/05/19 11:20 Pulse Rate 88 02/05/19 11:20 Respiratory Rate 18 02/05/19 11:20 Blood Pressure 129/89 02/05/19 11:20 O2 Sat by Pulse Oximetry (%) 95 02/05/19 07:45 Constitutional: Yes: Calm, Mild Distress Cardiovascular: Yes: S1, S2 Respiratory: Yes: Regular, CTA Bilaterally Gastrointestinal: Yes: Soft, Tenderness (llq) Musculoskeletal: Yes: WNL Extremities: Yes: WNL Neurological: Yes: Alert, Oriented Psychiatric: Yes: Alert, Oriented Labs: CBC, BMP 02/04/19 07:05 02/04/19 07:05 INR, PTT INR 1.52 (0.82-1.09) H 02/04/19 08:57 Assessment/Plan plan continue zosyn close watch surgery on case might need repeat imaging studies
--- NOTE | 2019-02-05 14:24 | PN ---
Physical Exam: SUBJECTIVE: Patient seen and examined at bedside. Pain across the lower abdomen persists. Continuing NPO. OBJECTIVE: Vital Signs Period Temp Pulse Resp BP Sys/Flor Pulse Ox Last 24 Hr 98.2 F-99.7 F 84-93 18-18 114-135/50-89 95-98 GENERAL: The patient is awake, alert, and fully oriented, in no acute distress. LUNGS: CTA HEART: Regular rate and rhythm, S1, S2 ABDOMEN: Diffuse lower abdominal tenderness EXTREMITIES: 2+ pulses, warm, well-perfused, no edema. NEUROLOGICAL: Cranial nerves II through XII grossly intact. Normal speech, gait not observed. PSYCH: Normal mood, normal affect. SKIN: Warm, dry, normal turgor, no rashes or lesions noted Active Medications Generic Name Dose Route Start Last Admin Trade Name Freq PRN Reason Stop Dose Admin Acetaminophen 650 mg 02/03/19 15:40 02/05/19 07:13 Tylenol - PO 650 mg Q6H PRN Administration FEVER Heparin Sodium (Porcine) 5,000 unit 02/03/19 22:00 02/05/19 09:20 Heparin - SQ 5,000 unit BID MARILUZ Administration Lactated Ringer's 1,000 ml in 1,000 mls @ 100 mls/hr 02/04/19 08:45 02/05/19 10:12 Lactated Ringers Solution IV 100 mls/hr ASDIR MARILUZ Administration Piperacillin Sod/Tazobactam 50 mls @ 100 mls/hr 02/04/19 18:00 02/05/19 09:20 Sod 3.375 gm/ Dextrose IVPB 100 mls/hr Q8H-IV MARILUZ Administration Protocol Morphine Sulfate 2 mg 02/03/19 22:32 02/04/19 23:24 Morphine Injection - IVPUSH 2 mg Q4H PRN Administration PAIN LEVEL 6-10 Pantoprazole Sodium 40 mg 02/04/19 10:00 02/05/19 09:20 Protonix Iv IVPUSH 40 mg DAILY MARILUZ Administration ASSESSMENT/PLAN: 53 year-old female with a PMH significant for GERD, restless leg syndrome s/p C- section. Admitted for acute sigmoid diverticulitis with possible abscess formation. Acute sigmoid diverticulitis -02/03 CTAP: complex structure 4.1 x 2.9cm, left ovarian cyst v. abscess --CT reviewed by IR, no intervention for now --afebrile, mild leukocytosis present on admission resolved, continue Zosyn ( day #2) --per surgery, continue medical management; once tenderness resolved do one week of full liquids --will need outpatient followup: (1) colonoscopy; (2) transvaginal US to reassess for possible ovarian complex cyst GERD --continue protonix Restless leg syndrome --on no meds FEN Fluids: LR @ 100mL/hr Electrolytes: replete as indicated Nutrition: NPO DVT prophylaxis: subq heparin Dispo: continues to require inpatient care. Full code. Visit type - Emergency Visit Emergency Visit: Yes ED Registration Date: 02/03/19 Care time: The patient presented to the Emergency Department on the above date and was hospitalized for further evaluation of their emergent condition. - New Patient This patient is new to me today: Yes Date on this admission: 02/05/19 - Critical Care Critical Care patient: No
[2019-02-05] MEDS: morphine CARPU-JECT 2 MG/1 ML DISP.SYRIN IVPUSH PRN (15:40)
[2019-02-06] MEDS ORDERED: PIPERACILLIN/TAZOBACTAM 3.375 GM VIAL IVPB ONE ×3 (01:12→16:14)
[2019-02-06] MEDS ORDERED: DEXTROSE 5%-WATER - 50 ML IVPB ONE ×3 (01:12→16:15)
[2019-02-06] MEDS: PIPERACILLIN/TAZOB 3.375 GM 3.375 GM in DEXTROSE 5%-WATER - 50 ML IVPB SCH ×3 (01:23→17:17)
[2019-02-06 07:58] LABS: BASO % 0.4 % (0-2.0); EOS % 2.6 % (0-4.5); HEMATOCRIT 32.5 % (32.4-45.2); LYMPH % 18.1 % (8-40); MCH 31.2 pg (25.7-33.7); MCHC 33.9 g/dl (32.0-36.0); MEAN PLT VOLUME 8.2 fl (7.5-11.1); MONO % 5.9 % (3.8-10.2); PLATELET COUNT 223 K/MM3 (134-434); RBC 3.54 M/mm3 (3.60-5.2); RDW 11.7 % (11.6-15.6); WHITE BLOOD COUNT 7.4 K/mm3 (4.0-10.8)
[2019-02-06 08:16] LABS: ALBUMIN 2.7 g/dl (3.4-5.0); BILIRUBIN,TOTAL 0.8 mg/dl (0.2-1); CREATININE 0.5 mg/dl (0.55-1.3); POTASSIUM 3.4 mmol/L (3.5-5.1); TOT PROT 5.4 g/dl (6.4-8.2)
[2019-02-06] MEDS: morphine CARPU-JECT 2 MG/1 ML DISP.SYRIN IVPUSH PRN ×2 (08:21→21:42)
--- NOTE | 2019-02-06 08:47 | PN ---
Physical Exam: SUBJECTIVE: Patient seen and examined at bedside. Lower abdominal pain persists , was better yesterday, worse today. Has had watery diarrhea yesterday and today. OBJECTIVE: Vital Signs Period Temp Pulse Resp BP Sys/Flor Pulse Ox Last 24 Hr 98.0 F-99.5 F 72-88 18-18 116-130/63-89 94-96 GENERAL: The patient is awake, alert, and fully oriented, in no acute distress. LUNGS: CTA HEART: Regular rate and rhythm, S1, S2 ABDOMEN: Distended, tenderness across lower abdomen EXTREMITIES: 2+ pulses, warm, well-perfused, no edema. NEUROLOGICAL: Cranial nerves II through XII grossly intact. Normal speech, gait not observed. Laboratory Results - last 24 hr 02/06/19 02/06/19 07:30 07:30 WBC 7.4 RBC 3.54 L Hgb 11.0 Hct 32.5 MCV 92.0 MCH 31.2 MCHC 33.9 RDW 11.7 Plt Count 223 MPV 8.2 Absolute Neuts (auto) 5.5 Neutrophils % 73.0 Lymphocytes % 18.1 Monocytes % 5.9 Eosinophils % 2.6 Basophils % 0.4 Sodium 136 Potassium 3.4 L Chloride 107 Carbon Dioxide 21 Anion Gap 8 BUN 9.0 Creatinine 0.5 L Est GFR (CKD-EPI)AfAm 129.88 Est GFR (CKD-EPI)NonAf 112.06 Random Glucose 67 L Calcium 8.0 L Magnesium 2.0 Total Bilirubin 0.8 AST 14 L ALT 12 L Alkaline Phosphatase 75 Total Protein 5.4 L Albumin 2.7 L Active Medications Generic Name Dose Route Start Last Admin Trade Name Freq PRN Reason Stop Dose Admin Acetaminophen 650 mg 02/03/19 15:40 02/05/19 23:59 Tylenol - PO 650 mg Q6H PRN Administration FEVER Heparin Sodium (Porcine) 5,000 unit 02/03/19 22:00 02/05/19 21:15 Heparin - SQ 5,000 unit BID MARILUZ Administration Lactated Ringer's 1,000 ml in 1,000 mls @ 100 mls/hr 02/04/19 08:45 02/05/19 10:12 Lactated Ringers Solution IV 100 mls/hr ASDIR MARILUZ Administration Piperacillin Sod/Tazobactam 50 mls @ 100 mls/hr 02/04/19 18:00 02/06/19 01:23 Sod 3.375 gm/ Dextrose IVPB 100 mls/hr Q8H-IV MARILUZ Administration Protocol Morphine Sulfate 2 mg 02/03/19 22:32 02/06/19 08:21 Morphine Injection - IVPUSH 2 mg Q4H PRN Administration PAIN LEVEL 6-10 Pantoprazole Sodium 40 mg 02/04/19 10:00 02/05/19 09:20 Protonix Iv IVPUSH 40 mg DAILY MARILUZ Administration Potassium Chloride 40 meq 02/06/19 08:45 K-Dur - PO 02/06/19 08:46 ONCE ONE Imaging 02/03 CTAP: complex structure 4.1 x 2.9cm, left ovarian cyst v. abscess ASSESSMENT/PLAN 53 year-old female with a PMH significant for GERD, restless leg syndrome s/p C- section. Admitted for acute sigmoid diverticulitis with possible abscess formation. Acute sigmoid diverticulitis --pain is worse today, repeat CTAP with IV contrast pending --remains afebrile, no leukocytosis; continue Zosyn day #3; send stool for c.diff --surgery and ID following Left ovarian cyst --02/04 US: 2.3 x 1.5cm cyst, cannot rule out complex cyst --consider MRI pelvis GERD --continue protonix Restless leg syndrome --on no meds FEN Fluids: LR @ 100mL/hr Electrolytes: replete as indicated Nutrition: NPO DVT prophylaxis: subq heparin Dispo: continues to require inpatient care. Full code Visit type - Emergency Visit Emergency Visit: Yes ED Registration Date: 02/03/19 Care time: The patient presented to the Emergency Department on the above date and was hospitalized for further evaluation of their emergent condition. - New Patient This patient is new to me today: No - Critical Care Critical Care patient: No
[2019-02-06] MEDS: HEPARIN NA (PORCINE) 5,000 UNITS/ML 1ML VIAL SQ SCH ×2 (08:59→21:05)
[2019-02-06] MEDS: PANTOPRAZOLE SODIUM 40 MG VIAL IVPUSH SCH (08:59)
[2019-02-06] MEDS ORDERED: POTASSIUM CHLORIDE TABS 20 MEQ TABLET.ER (FP) PO ONE (09:00)
[2019-02-06] MEDS: ACETAMINOPHEN 325 MG TABLET (FP) PO PRN ×2 (11:36→23:41)
--- NOTE | 2019-02-06 15:27 | PN ---
Progress Note, Physician History of Present Illness: was having pain in the morning now better after pain meds still no gi function - Current Medication List Current Medications: Active Medications Acetaminophen (Tylenol -) 650 mg PO Q6H PRN PRN Reason: FEVER Last Admin: 02/06/19 11:36 Dose: 650 mg Heparin Sodium (Porcine) (Heparin -) 5,000 unit SQ BID MARILUZ Last Admin: 02/06/19 08:59 Dose: 5,000 unit Lactated Ringer's (Lactated Ringers Solution) 1,000 ml in 1,000 mls @ 100 mls/ hr IV ASDIR MARILUZ Last Admin: 02/05/19 10:12 Dose: 100 mls/hr Piperacillin Sod/Tazobactam (Sod 3.375 gm/ Dextrose) 50 mls @ 100 mls/hr IVPB Q8H-IV MARILUZ; Protocol Last Admin: 02/06/19 08:59 Dose: 100 mls/hr Morphine Sulfate (Morphine Injection -) 2 mg IVPUSH Q4H PRN PRN Reason: PAIN LEVEL 6-10 Last Admin: 02/06/19 08:21 Dose: 2 mg Pantoprazole Sodium (Protonix Iv) 40 mg IVPUSH DAILY MARILUZ Last Admin: 02/06/19 08:59 Dose: 40 mg - Objective Vital Signs: Vital Signs Temperature 99.1 F 02/06/19 14:00 Pulse Rate 78 02/06/19 14:00 Respiratory Rate 17 02/06/19 14:00 Blood Pressure 119/64 02/06/19 14:00 O2 Sat by Pulse Oximetry (%) 95 02/06/19 14:00 Constitutional: Yes: Calm, Mild Distress Cardiovascular: Yes: S1, S2 Respiratory: Yes: Regular, CTA Bilaterally Gastrointestinal: Yes: Soft, Distention, Tenderness, Other (very hypoactive bowel sounds) Musculoskeletal: Yes: WNL Extremities: Yes: WNL Neurological: Yes: Alert, Oriented Psychiatric: Yes: Alert, Oriented Labs: CBC, BMP 02/06/19 07:30 02/06/19 07:30 INR, PTT INR 1.52 (0.82-1.09) H 02/04/19 08:57 Assessment/Plan 53 year-old female with a PMH significant for GERD, restless leg syndrome s/p C- section. Admitted for acute sigmoid diverticulitis with possible abscess formation. ac diverticulitis abd pain plan continue abx repeat imaging npo rest as per surgery
[2019-02-06] MEDS: LACTATED RINGERS SOLUTION 1,000 ML/1,000 ML INFUS.BAG IV SCH (17:18)
--- NOTE | 2019-02-06 23:57 | HOSP ---
Subjective - Review of Symptoms Events since last encounter: Repeat CT tonight shows abscess slightly larger with significant stranding/ inflammatory changes consistent with perforation. Also formation of a second abscess anterior to the midsigmoid colon 1.4cm suspicious for an abscess. Patient remains afebrile, no leukocytosis, hemodynamically stable. Called and spoke to Dr. Hearn, covering surgeon for Dr. Hood. CT likely represents a local perforation, and as long as patient is stable, no emergent treatment tonight indicated. Discuss with Dr. Hood in the morning whether to transfer patient to [facility] for perc drainage. Physical Examination Vital Signs: Vital Signs Temperature 99.7 F H 02/06/19 22:26 Pulse Rate 81 02/06/19 22:26 Respiratory Rate 18 02/06/19 22:26 Blood Pressure 125/68 02/06/19 22:26 O2 Sat by Pulse Oximetry (%) 98 02/06/19 22:26 Labs: CBC, BMP 02/06/19 07:30 02/06/19 07:30
[2019-02-07] MEDS ORDERED: DEXTROSE 5%-WATER - 50 ML IVPB ONE ×2 (01:40→08:33)
[2019-02-07] MEDS ORDERED: PIPERACILLIN/TAZOBACTAM 3.375 GM VIAL IVPB ONE ×2 (01:40→08:33)
[2019-02-07] MEDS: PIPERACILLIN/TAZOB 3.375 GM 3.375 GM in DEXTROSE 5%-WATER - 50 ML IVPB SCH ×3 (02:07→21:28)
[2019-02-07] MEDS: PANTOPRAZOLE SODIUM 40 MG VIAL IVPUSH SCH (09:03)
[2019-02-07] MEDS: HEPARIN NA (PORCINE) 5,000 UNITS/ML 1ML VIAL SQ SCH ×2 (09:04→21:29)
--- NOTE | 2019-02-07 13:11 | PN ---
Progress Note, Physician History of Present Illness: patient stable ct scan noted abscess to be drained today - Current Medication List Current Medications: Active Medications Acetaminophen (Tylenol -) 650 mg PO Q6H PRN PRN Reason: FEVER Last Admin: 02/06/19 23:41 Dose: 650 mg Heparin Sodium (Porcine) (Heparin -) 5,000 unit SQ BID MARILUZ Last Admin: 02/07/19 09:04 Dose: 5,000 unit Lactated Ringer's (Lactated Ringers Solution) 1,000 ml in 1,000 mls @ 100 mls/ hr IV ASDIR MARILUZ Last Admin: 02/06/19 17:18 Dose: 100 mls/hr Piperacillin Sod/Tazobactam (Sod 3.375 gm/ Dextrose) 50 mls @ 100 mls/hr IVPB Q8H-IV MARILUZ; Protocol Last Admin: 02/07/19 09:03 Dose: 100 mls/hr Morphine Sulfate (Morphine Injection -) 2 mg IVPUSH Q4H PRN PRN Reason: PAIN LEVEL 6-10 Last Admin: 02/06/19 21:42 Dose: 2 mg Pantoprazole Sodium (Protonix Iv) 40 mg IVPUSH DAILY [facility] Last Admin: 02/07/19 09:03 Dose: 40 mg - Objective Vital Signs: Vital Signs Temperature 98.2 F 02/07/19 13:00 Pulse Rate 92 H 02/07/19 13:00 Respiratory Rate 16 02/07/19 13:00 Blood Pressure 110/71 02/07/19 13:00 O2 Sat by Pulse Oximetry (%) 99 02/07/19 10:48 Constitutional: Yes: No Distress, Calm Cardiovascular: Yes: S1, S2 Respiratory: Yes: Regular, CTA Bilaterally Gastrointestinal: Yes: Soft, Other (absent bowel sounds) Musculoskeletal: Yes: WNL Extremities: Yes: WNL Neurological: Yes: Alert, Oriented Psychiatric: Yes: Alert, Oriented Labs: CBC, BMP 02/06/19 07:30 02/06/19 07:30 INR, PTT INR 1.52 (0.82-1.09) H 02/04/19 08:57 Assessment/Plan 53 year-old female with a PMH significant for GERD, restless leg syndrome s/p C- section. Admitted for acute sigmoid diverticulitis with possible abscess formation. ac diverticulitis abd pain abd abscess plan continue abx plan for aspiration npo iv fludis
--- NOTE | 2019-02-07 14:31 | PN ---
Progress Note (short form) - Note Progress Note: surgery pt had pain yesterday and ct repeated by medical team. no pain today. Ct shows ovarian cyst now with air and larger. reviewed with Dr. Hill and possible TOA but from diverticulitis. for per drainage now. afebirle abd- soft, mild rlq tenderness. wbc still normal Plan- follow aspiration. if pus follow cultures. likley liquids tomorrow.
--- NOTE | 2019-02-07 16:08 | PN ---
Physical Exam: SUBJECTIVE: Patient seen and examined at bedside. Discussed findings of last night's CT, need to go to [facility] for IR aspiration of abscess. OBJECTIVE: Vital Signs Period Temp Pulse Resp BP Sys/Flor Pulse Ox Last 24 Hr 98.0 F-99.7 F 71-92 14-18 110-145/52-87 95-100 GENERAL: The patient is awake, alert, and fully oriented, in no acute distress. LUNGS: CTA HEART: Regular rate and rhythm, S1, S2 ABDOMEN: Distended, tenderness across lower abdomen EXTREMITIES: 2+ pulses, warm, well-perfused, no edema. NEUROLOGICAL: Cranial nerves II through XII grossly intact. Normal speech, gait not observed. Active Medications Generic Name Dose Route Start Last Admin Trade Name Freq PRN Reason Stop Dose Admin Acetaminophen 650 mg 02/03/19 15:40 02/06/19 23:41 Tylenol - PO 650 mg Q6H PRN Administration FEVER Heparin Sodium (Porcine) 5,000 unit 02/03/19 22:00 02/07/19 09:04 Heparin - SQ 5,000 unit BID MARILUZ Administration Lactated Ringer's 1,000 ml in 1,000 mls @ 100 mls/hr 02/04/19 08:45 02/06/19 17:18 Lactated Ringers Solution IV 100 mls/hr ASDIR MARILUZ Administration Piperacillin Sod/Tazobactam 50 mls @ 100 mls/hr 02/04/19 18:00 02/07/19 09:03 Sod 3.375 gm/ Dextrose IVPB 100 mls/hr Q8H-IV MARILUZ Administration Protocol Morphine Sulfate 2 mg 02/03/19 22:32 02/06/19 21:42 Morphine Injection - IVPUSH 2 mg Q4H PRN Administration PAIN LEVEL 6-10 Pantoprazole Sodium 40 mg 02/04/19 10:00 02/07/19 09:03 Protonix Iv IVPUSH 40 mg DAILY MARILUZ Administration Imaging 02/03 CTAP: complex structure 4.1 x 2.9cm, left ovarian cyst v. abscess 02/06 CTAP: acute diverticulitis; increase in size 5.2 x 4.4cm with significant stranding/inflammation c/w perforation; second smaller fluid collection anterior to the midsigmoid 1.4cm suspicious for abscess ASSESSMENT/PLAN 53 year-old female with a PMH significant for GERD, restless leg syndrome s/p C- section. Admitted for acute sigmoid diverticulitis with possible abscess formation. Acute sigmoid diverticulitis Left ovarian cyst --repeat CT on 02/06 showed enlarging collection and development of a second collection --went for IR drainage today, advised could only aspirate 3cc's of bloody fluid, sent for culture; possible tubular ovarian cyst caused by diverticulitis ? --remains afebrile, no leukocytosis, and hemodynamically stable; continue Zosyn day #4 --blood cultures NGTD; stool cx negative; c.diff negative --surgery and ID following --MEATMAN consult placed GERD --continue protonix Restless leg syndrome --on no meds FEN Fluids: LR @ 100mL/hr Electrolytes: replete as indicated Nutrition: NPO DVT prophylaxis: subq heparin Dispo: continues to require inpatient care. Full code Visit type - Emergency Visit Emergency Visit: Yes ED Registration Date: 02/03/19 Care time: The patient presented to the Emergency Department on the above date and was hospitalized for further evaluation of their emergent condition. - New Patient This patient is new to me today: No - Critical Care Critical Care patient: No
[2019-02-07] MEDS ORDERED: ONDANSETRON 4 MG/2 ML VIAL ONE (17:40)
[2019-02-08] MEDS ORDERED: DEXTROSE 5%-WATER - 50 ML IVPB ONE ×3 (01:53→15:43)
[2019-02-08] MEDS ORDERED: PIPERACILLIN/TAZOBACTAM 3.375 GM VIAL IVPB ONE ×3 (01:53→15:43)
[2019-02-08] MEDS: PIPERACILLIN/TAZOB 3.375 GM 3.375 GM in DEXTROSE 5%-WATER - 50 ML IVPB SCH ×3 (02:17→17:14)
[2019-02-08] MEDS: HEPARIN NA (PORCINE) 5,000 UNITS/ML 1ML VIAL SQ SCH ×2 (09:00→22:04)
[2019-02-08] MEDS: PANTOPRAZOLE SODIUM 40 MG VIAL IVPUSH SCH (09:00)
--- NOTE | 2019-02-08 12:05 | PN ---
Progress Note (short form) - Note Progress Note: surgery pt seen and examined. feels well. tolerating liquids. aspiration did not find pus. abd- soft, nt Plan- d/c tomorrow on full liquids for 1 week. needs 1 week augmentin. 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
--- NOTE | 2019-02-08 12:26 | PN ---
Progress Note, Physician History of Present Illness: stable improving had he abscess drained - Current Medication List Current Medications: Active Medications Acetaminophen (Tylenol -) 650 mg PO Q6H PRN PRN Reason: FEVER Last Admin: 02/06/19 23:41 Dose: 650 mg Heparin Sodium (Porcine) (Heparin -) 5,000 unit SQ BID MARILUZ Last Admin: 02/08/19 09:00 Dose: 5,000 unit Lactated Ringer's (Lactated Ringers Solution) 1,000 ml in 1,000 mls @ 100 mls/ hr IV ASDIR MARILUZ Last Admin: 02/06/19 17:18 Dose: 100 mls/hr Piperacillin Sod/Tazobactam (Sod 3.375 gm/ Dextrose) 50 mls @ 100 mls/hr IVPB Q8H-IV MARILUZ; Protocol Last Admin: 02/08/19 09:00 Dose: 100 mls/hr Morphine Sulfate (Morphine Injection -) 2 mg IVPUSH Q4H PRN PRN Reason: PAIN LEVEL 6-10 Last Admin: 02/06/19 21:42 Dose: 2 mg Pantoprazole Sodium (Protonix Iv) 40 mg IVPUSH DAILY [facility] Last Admin: 02/08/19 09:00 Dose: 40 mg - Objective Vital Signs: Vital Signs Temperature 97.6 F 02/08/19 05:53 Pulse Rate 68 02/08/19 05:53 Respiratory Rate 18 02/08/19 09:00 Blood Pressure 144/74 02/08/19 05:53 O2 Sat by Pulse Oximetry (%) 97 02/08/19 09:00 Constitutional: Yes: No Distress, Calm Cardiovascular: Yes: S1, S2 Respiratory: Yes: Regular, CTA Bilaterally Extremities: Yes: WNL Wound/Incision: Yes: Dressing Dry and Intact Neurological: Yes: Alert, Oriented Labs: CBC, BMP 02/06/19 07:30 02/06/19 07:30 INR, PTT INR 1.52 (0.82-1.09) H 02/04/19 08:57 Assessment/Plan 53 year-old female with a PMH significant for GERD, restless leg syndrome s/p C- section. Admitted for acute sigmoid diverticulitis with possible abscess formation. ac diverticulitis abd pain abd abscess plan continue abx await for identification of the organism npo iv fludis
[2019-02-09] MEDS ORDERED: PIPERACILLIN/TAZOBACTAM 3.375 GM VIAL IVPB ONE ×3 (01:13→17:03)
[2019-02-09] MEDS ORDERED: DEXTROSE 5%-WATER - 50 ML IVPB ONE ×3 (01:13→17:03)
[2019-02-09] MEDS: PIPERACILLIN/TAZOB 3.375 GM 3.375 GM in DEXTROSE 5%-WATER - 50 ML IVPB SCH ×3 (01:16→17:39)
[2019-02-09 08:39] LABS: BASO % 0.5 % (0-2.0); EOS % 3.9 % (0-4.5); HEMATOCRIT 35.6 % (32.4-45.2); HEMOGLOBIN 11.9 GM/dl (10.7-15.3); LYMPH % 26.4 % (8-40); MCH 30.9 pg (25.7-33.7); MCHC 33.6 g/dl (32.0-36.0); MEAN CELL VOLUME 91.9 fl (80-96); NEUT % 62.2 % (42.8-82.8); PLATELET COUNT 349 K/MM3 (134-434); RBC 3.87 M/mm3 (3.60-5.2); RDW 11.8 % (11.6-15.6); WHITE BLOOD COUNT 5.6 K/mm3 (4.0-10.8)
[2019-02-09 08:40] LABS: ALBUMIN 3.1 g/dl (3.4-5.0); BILIRUBIN,TOTAL 0.5 mg/dl (0.2-1); CALCIUM 8.8 mg/dl (8.5-10); CREATININE 0.5 mg/dl (0.55-1.3); MAGNESIUM 1.7 mg/dL (1.8-2.4); POTASSIUM 3.5 mmol/L (3.5-5.1); TOT PROT 6.1 g/dl (6.4-8.2)
[2019-02-09] MEDS: LACTATED RINGERS SOLUTION 1,000 ML/1,000 ML INFUS.BAG IV SCH (09:31)
[2019-02-09] MEDS: PANTOPRAZOLE SODIUM 40 MG VIAL IVPUSH SCH (09:31)
[2019-02-09] MEDS: HEPARIN NA (PORCINE) 5,000 UNITS/ML 1ML VIAL SQ SCH ×2 (09:31→21:18)
[2019-02-09] MEDS ORDERED: POTASSIUM CHLORIDE TABS 20 MEQ TABLET.ER (FP) PO ONE (11:47)
[2019-02-09] MEDS ORDERED: MAGNESIUM SULF 50% (8.12 MEQ/2 ML-1 GM VIAL) IVPB ONE (11:47)
--- NOTE | 2019-02-09 12:08 | PN ---
Physical Exam: SUBJECTIVE: Patient seen and examined at bedside. Pt reports feeling better, c/ o having diarrhea, no hematochezia, abdominal pain, N/V, chills , cp, sob or palpitations. OBJECTIVE: Vital Signs Period Temp Pulse Resp BP Sys/Flor Pulse Ox Last 24 Hr 98.1 F-98.6 F 72-86 16-18 135-160/76-84 97-99 GENERAL: The patient is awake, alert, and fully oriented, in no acute distress. HEAD: Normal with no signs of trauma. EYES: PERRL, extraocular movements intact, sclera anicteric, conjunctiva clear. No ptosis. ENT: Ears normal, nares patent, oropharynx clear without exudates, moist mucous membranes. NECK: Trachea midline, full range of motion, supple. LUNGS: Breath sounds equal, clear to auscultation bilaterally, no wheezes, no crackles, no accessory muscle use. HEART: Regular rate and rhythm, S1, S2 without murmur, rub or gallop. ABDOMEN: Soft, nontender, nondistended, normoactive bowel sounds, no guarding, no rebound, no hepatosplenomegaly, no masses. LLQ dsg dry and intact EXTREMITIES: 2+ pulses, warm, well-perfused, no edema. NEUROLOGICAL: Cranial nerves II through XII grossly intact. Normal speech, gait not observed. PSYCH: Normal mood, normal affect. SKIN: Warm, dry, normal turgor, no rashes or lesions noted Laboratory Results - last 24 hr 02/04/19 02/09/19 02/09/19 06:45 07:25 07:25 WBC 5.6 RBC 3.87 Hgb 11.9 Hct 35.6 MCV 91.9 MCH 30.9 MCHC 33.6 RDW 11.8 Plt Count 349 MPV 8.0 Absolute Neuts (auto) 3.5 Neutrophils % 62.2 Lymphocytes % 26.4 Monocytes % 7.0 Eosinophils % 3.9 Basophils % 0.5 Sodium 138 Potassium 3.5 Chloride 102 Carbon Dioxide 27 Anion Gap 9 BUN 6.0 L Creatinine 0.5 L Est GFR (CKD-EPI)AfAm 129.88 Est GFR (CKD-EPI)NonAf 112.06 Random Glucose 91 Calcium 8.8 Magnesium 1.7 L Total Bilirubin 0.5 AST 71 H ALT 73 H Alkaline Phosphatase 86 D Total Protein 6.1 L Albumin 3.1 L Stool Lactoferrin 57.50 H Active Medications Generic Name Dose Route Start Last Admin Trade Name Freq PRN Reason Stop Dose Admin Acetaminophen 650 mg 02/03/19 15:40 02/06/19 23:41 Tylenol - PO 650 mg Q6H PRN Administration FEVER Heparin Sodium (Porcine) 5,000 unit 02/03/19 22:00 02/09/19 09:31 Heparin - SQ 5,000 unit BID MARILUZ Administration Lactated Ringer's 1,000 ml in 1,000 mls @ 100 mls/hr 02/04/19 08:45 02/09/19 09:31 Lactated Ringers Solution IV 100 mls/hr ASDIR MARILUZ Administration Piperacillin Sod/Tazobactam 50 mls @ 100 mls/hr 02/04/19 18:00 02/09/19 09:33 Sod 3.375 gm/ Dextrose IVPB 100 mls/hr Q8H-IV MARILUZ Administration Protocol Morphine Sulfate 2 mg 02/03/19 22:32 02/06/19 21:42 Morphine Injection - IVPUSH 2 mg Q4H PRN Administration PAIN LEVEL 6-10 Pantoprazole Sodium 40 mg 02/04/19 10:00 02/09/19 09:31 Protonix Iv IVPUSH 40 mg DAILY MARILUZ Administration Imaging 02/03 CTAP: complex structure 4.1 x 2.9cm, left ovarian cyst v. abscess 02/06 CTAP: acute diverticulitis; increase in size 5.2 x 4.4cm with significant stranding/inflammation c/w perforation; second smaller fluid collection anterior to the midsigmoid 1.4cm suspicious for abscess Pelvic US: Ovarian cyst , measuring 2.3x1.5cm ASSESSMENT/PLAN 53 year-old female with a PMH significant for GERD, restless leg syndrome, s/p C -section. Admitted for acute sigmoid diverticulitis with possible abscess formation. *Acute sigmoid diverticulitis Left ovarian cyst -repeat CT on 02/06 showed enlarging collection and development of a second collection -s/p IR drainage, advised could only aspirate 3cc's of bloody fluid, sent for culture; possible tubular ovarian cyst caused by diverticulitis? -remains afebrile, no leukocytosis - ID following, rec to continue Zosyn (day #5) -await for identification of the organism -blood cultures NGTD; stool cx negative; c.diff negative -surgery following rec to d/c on full liquids for 1 week. Needs 1 week Augmentin. 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 -GROOVER OPERATOR consulted ,pending *GERD -continue protonix *Restless leg syndrome -not no any meds FEN Fluids: LR @ 100mL/hr Electrolytes: K and Mg - replaced Nutrition: full liquid diet , once full liquid jelly well, will DC IVF DVT prophylaxis: subq heparin Dispo: continues to require inpatient care. Full code Visit type - Emergency Visit Emergency Visit: Yes ED Registration Date: 02/03/19 Care time: The patient presented to the Emergency Department on the above date and was hospitalized for further evaluation of their emergent condition. - New Patient This patient is new to me today: Yes Date on this admission: 02/09/19 - Critical Care Critical Care patient: No
[2019-02-09] MEDS: LACTOBACILLUS ACIDOPHILUS 1 TABLET PO SCH (14:08)
--- NOTE | 2019-02-09 18:52 | PN ---
Progress Note, Physician History of Present Illness: Pt seen, events noted. She states she feels better but reports 7-8 loose BMs so far today. - Current Medication List Current Medications: Active Medications Acetaminophen (Tylenol -) 650 mg PO Q6H PRN PRN Reason: FEVER Last Admin: 02/06/19 23:41 Dose: 650 mg Heparin Sodium (Porcine) (Heparin -) 5,000 unit SQ BID [facility] Last Admin: 02/09/19 09:31 Dose: 5,000 unit Lactated Ringer's (Lactated Ringers Solution) 1,000 ml in 1,000 mls @ 100 mls/ hr IV ASDIR MARILUZ Last Admin: 02/09/19 09:31 Dose: 100 mls/hr Piperacillin Sod/Tazobactam (Sod 3.375 gm/ Dextrose) 50 mls @ 100 mls/hr IVPB Q8H-IV MARILUZ; Protocol Last Admin: 02/09/19 17:39 Dose: 100 mls/hr Lactobacillus Acidophilus (Bacid -) 1 tab PO DAILY [facility] Last Admin: 02/09/19 14:08 Dose: 1 tab Morphine Sulfate (Morphine Injection -) 2 mg IVPUSH Q4H PRN PRN Reason: PAIN LEVEL 6-10 Last Admin: 02/06/19 21:42 Dose: 2 mg Pantoprazole Sodium (Protonix Iv) 40 mg IVPUSH DAILY [facility] Last Admin: 02/09/19 09:31 Dose: 40 mg - Objective Vital Signs: Vital Signs Temperature 98.3 F 02/09/19 14:00 Pulse Rate 82 02/09/19 14:00 Respiratory Rate 16 02/09/19 14:00 Blood Pressure 143/76 02/09/19 14:00 O2 Sat by Pulse Oximetry (%) 98 02/09/19 14:00 Constitutional: Yes: No Distress, Calm Cardiovascular: Yes: Regular Rate and Rhythm Respiratory: Yes: Regular Gastrointestinal: Yes: Normal Bowel Sounds, Soft, Tenderness (mild in LLQ with deep palpation) Genitourinary: Yes: WNL Extremities: Yes: WNL Integumentary: Yes: WNL Neurological: Yes: Alert, Oriented Labs: CBC, BMP 02/09/19 07:25 02/09/19 07:25 INR, PTT INR 1.52 (0.82-1.09) H 02/04/19 08:57 Microbiology 02/07/19 14:25 Abscess Gram Stain - Final 02/07/19 14:25 Abscess Body Fluid Culture - Preliminary 02/03/19 12:10 Blood - Peripheral Venous Blood Culture - Final NO GROWTH AFTER 5 DAYS INCUBATION 02/03/19 12:15 Blood - Peripheral Venous Blood Culture - Final NO GROWTH AFTER 5 DAYS INCUBATION 02/06/19 22:00 Stool Clostridioides difficile Antigen - Final 02/06/19 22:00 Stool Clostridioides difficile Toxin Assay - Final 02/05/19 06:45 Stool Gram Stain - Final 02/05/19 06:45 Stool Salmonella/Shigella Culture - Preliminary NO ENTERIC PATHOGENS, 24 HOURS, ON PRIMARY PLATES 02/05/19 06:45 Stool Yersinia Culture - Preliminary NO ENTERIC PATHOGENS, 24 HOURS, ON PRIMARY PLATES 02/05/19 06:45 Stool Vibrio Culture - Final NO GROWTH OF VIBRIO SPECIES OBTAINED 02/05/19 06:45 Stool Escherichia coli 0157 Culture - Final NO GROWTH OF E COLI 0157 OBTAINED - ....Imaging Cat Scan: Report Reviewed Problem List - Problems (1) Diverticulitis of intestine with abscess Code(s): K57.80 - DVTRCLI OF INTEST, PART UNSP, W PERF AND ABSCESS W/O BLEED Qualifiers: Diverticulitis site: large intestine Diverticulitis bleeding: unspecified bleeding status Qualified Code(s): K57.20 - Diverticulitis of large intestine with perforation and abscess without bleeding Assessment/Plan Acute sigmoid diverticulitis with local perforation/ collection s/p aspiration -- culture results noted: growing GPC in broth, awaiting identification -- suggest continue IV antibiotics for now -- Pt still with loose BMs, C.diff neg/stool cx neg
[2019-02-09] MEDS: ACETAMINOPHEN 325 MG TABLET (FP) PO PRN (19:55)
[2019-02-10] MEDS ORDERED: PIPERACILLIN/TAZOBACTAM 3.375 GM VIAL IVPB ONE ×4 (01:12→23:44)
[2019-02-10] MEDS ORDERED: DEXTROSE 5%-WATER - 50 ML IVPB ONE ×4 (01:12→23:44)
[2019-02-10] MEDS: PIPERACILLIN/TAZOB 3.375 GM 3.375 GM in DEXTROSE 5%-WATER - 50 ML IVPB SCH ×3 (01:29→17:06)
[2019-02-10 08:33] LABS: CALCIUM 8.6 mg/dl (8.5-10); CREATININE 0.5 mg/dl (0.55-1.3); MAGNESIUM 1.8 mg/dL (1.8-2.4); POTASSIUM 3.4 mmol/L (3.5-5.1)
[2019-02-10] MEDS: LACTATED RINGERS SOLUTION 1,000 ML/1,000 ML INFUS.BAG IV SCH ×2 (09:21→09:24)
[2019-02-10] MEDS: PANTOPRAZOLE SODIUM 40 MG VIAL IVPUSH SCH (09:22)
[2019-02-10] MEDS: HEPARIN NA (PORCINE) 5,000 UNITS/ML 1ML VIAL SQ SCH (09:22)
[2019-02-10] MEDS: LACTOBACILLUS ACIDOPHILUS 1 TABLET PO SCH (09:22)
--- NOTE | 2019-02-10 09:43 | PN ---
Progress Note, Physician Chief Complaint: c/o diarrhea History of Present Illness: 54 yrs old F admitted with Left LQ pain due to diverticular absess repeat CT on 02/06 showed enlarging collection and development of a second collection-s/p IR drainage, advised could only aspirate 3cc's of bloody fluid, sent for culture ; possible tubular ovarian cyst caused by diverticulitis, on IV Zosyn day 6th cleared by surgery - Current Medication List Current Medications: Active Medications Acetaminophen (Tylenol -) 650 mg PO Q6H PRN PRN Reason: FEVER Last Admin: 02/09/19 19:55 Dose: 650 mg Heparin Sodium (Porcine) (Heparin -) 5,000 unit SQ BID MARILUZ Last Admin: 02/10/19 09:22 Dose: 5,000 unit Lactated Ringer's (Lactated Ringers Solution) 1,000 ml in 1,000 mls @ 100 mls/ hr IV ASDIR MARILUZ Last Admin: 02/10/19 09:24 Dose: 100 mls/hr Piperacillin Sod/Tazobactam (Sod 3.375 gm/ Dextrose) 50 mls @ 100 mls/hr IVPB Q8H-IV MARILUZ; Protocol Last Admin: 02/10/19 09:22 Dose: 100 mls/hr Lactobacillus Acidophilus (Bacid -) 1 tab PO DAILY MARILUZ Last Admin: 02/10/19 09:22 Dose: 1 tab Morphine Sulfate (Morphine Injection -) 2 mg IVPUSH Q4H PRN PRN Reason: PAIN LEVEL 6-10 Last Admin: 02/06/19 21:42 Dose: 2 mg Pantoprazole Sodium (Protonix Iv) 40 mg IVPUSH DAILY [facility] Last Admin: 02/10/19 09:22 Dose: 40 mg - Objective Vital Signs: Vital Signs Temperature 98.6 F 02/10/19 04:00 Pulse Rate 71 02/10/19 04:00 Respiratory Rate 20 02/10/19 09:29 Blood Pressure 146/73 02/10/19 04:00 O2 Sat by Pulse Oximetry (%) 98 02/10/19 09:29 Elderly F comfortable not in distress complaint of diarrhea HEENT: Mm moist, no anemia NECK: No JVd No Bruit CHEST: Minimal Wheezes CVS: S1S2 R ABD: no distention, mild left LQ tender , bowel sounds EXT: No edema feet, pulses positive CERTIFIED MEDICAL DOSIMETRIST: AOX3 non focal Labs: CBC, BMP 02/09/19 07:25 02/10/19 08:00 INR, PTT INR 1.52 (0.82-1.09) H 02/04/19 08:57 Problem List - Problems (1) Diverticulitis of intestine with abscess Assessment/Plan: Patient status post diverticulitis/abscess formation, underwent IR guided aspiration did show 3 cc serous fluid, no significant bacterial growth, T WBC is normal, afebrile, cleared by surgery, complaint of ongoing diarrhea, discussed with ID consult for duration of antibiotic/assist to oral antibiotic. Code(s): K57.80 - DVTRCLI OF INTEST, PART UNSP, W PERF AND ABSCESS W/O BLEED Qualifiers: Diverticulitis site: large intestine Diverticulitis bleeding: unspecified bleeding status Qualified Code(s): K57.20 - Diverticulitis of large intestine with perforation and abscess without bleeding (2) Diarrhea Assessment/Plan: Patient has watery diarrhea, so far stool C. difficile and other bacterial cultures are negative, follow-up ID recommendations continue IV hydration. Problems reviewed: Yes Code(s): R19.7 - DIARRHEA, UNSPECIFIED (3) Hypokalemia Assessment/Plan: Mild will replete Problems reviewed: Yes Code(s): E87.6 - HYPOKALEMIA
[2019-02-10] MEDS ORDERED: POTASSIUM CHLORIDE ORAL LIQUID 20 MEQ/15 ML PO ONE (13:10)
[2019-02-10] MEDS ORDERED: MAGNESIUM SULF 50% (8.12 MEQ/2 ML-1 GM VIAL) IVPB ONE (13:13)
--- NOTE | 2019-02-10 18:53 | PN ---
Progress Note, Physician History of Present Illness: Pt states she feels well. Has no abd pain, currently on full liquid diet, but still having diarrhea. Tmax 99.1F. Has no other complaints. - Current Medication List Current Medications: Active Medications Acetaminophen (Tylenol -) 650 mg PO Q6H PRN PRN Reason: FEVER Last Admin: 02/09/19 19:55 Dose: 650 mg Enoxaparin Sodium (Lovenox -) 40 mg SQ DAILY [facility] Lactated Ringer's (Lactated Ringers Solution) 1,000 ml in 1,000 mls @ 100 mls/ hr IV ASDIR MARILUZ Last Admin: 02/10/19 09:24 Dose: 100 mls/hr Piperacillin Sod/Tazobactam (Sod 3.375 gm/ Dextrose) 50 mls @ 100 mls/hr IVPB Q8H-IV MRAILUZ; Protocol Last Admin: 02/10/19 17:06 Dose: 100 mls/hr Lactobacillus Acidophilus (Bacid -) 1 tab PO DAILY [facility] Last Admin: 02/10/19 09:22 Dose: 1 tab Morphine Sulfate (Morphine Injection -) 2 mg IVPUSH Q4H PRN PRN Reason: PAIN LEVEL 6-10 Last Admin: 02/06/19 21:42 Dose: 2 mg Pantoprazole Sodium (Protonix Iv) 40 mg IVPUSH DAILY [facility] Last Admin: 02/10/19 09:22 Dose: 40 mg - Objective Vital Signs: Vital Signs Temperature 99.0 F 02/10/19 18:00 Pulse Rate 88 02/10/19 18:00 Respiratory Rate 19 02/10/19 18:00 Blood Pressure 131/72 02/10/19 18:00 O2 Sat by Pulse Oximetry (%) 94 L 02/10/19 18:00 Constitutional: Yes: No Distress, Calm Cardiovascular: Yes: Regular Rate and Rhythm Respiratory: Yes: Regular Gastrointestinal: Yes: Normal Bowel Sounds, Soft Genitourinary: Yes: WNL Musculoskeletal: Yes: WNL Extremities: Yes: WNL Edema: No Integumentary: Yes: WNL Neurological: Yes: Alert, Oriented Labs: CBC, BMP 02/09/19 07:25 02/10/19 08:00 INR, PTT INR 1.52 (0.82-1.09) H 02/04/19 08:57 Laboratory Results - last 24 hr 02/10/19 08:00 Sodium 139 Potassium 3.4 L Chloride 104 Carbon Dioxide 25 Anion Gap 10 BUN 4.0 L Creatinine 0.5 L Est GFR (CKD-EPI)AfAm 128.97 Est GFR (CKD-EPI)NonAf 111.28 Random Glucose 88 Calcium 8.6 Magnesium 1.8 Problem List - Problems (1) Diverticulitis of intestine with abscess Code(s): K57.80 - DVTRCLI OF INTEST, PART UNSP, W PERF AND ABSCESS W/O BLEED Qualifiers: Diverticulitis site: large intestine Diverticulitis bleeding: unspecified bleeding status Qualified Code(s): K57.20 - Diverticulitis of large intestine with perforation and abscess without bleeding Assessment/Plan Acute sigmoid diverticulitis with local perforation/ collection s/p aspiration Diarrhea -- cultures +GPC - awaiting isolates -- Stool cultures/C.diff neg -- Monitor temps as appears to be slightly elevated since last night -- if diarrhea persists, will switch to Levaquin/Flagyl -- Pt without abdominal pain, still on liquid diet -- Suggest follow up CT after antibiotics
[2019-02-11] MEDS: PIPERACILLIN/TAZOB 3.375 GM 3.375 GM in DEXTROSE 5%-WATER - 50 ML IVPB SCH ×3 (01:16→17:17)
[2019-02-11 07:56] LABS: EOS % 4.9 % (0-4.5); HEMOGLOBIN 12.1 GM/dl (10.7-15.3); LYMPH % 24.2 % (8-40); MCH 30.3 pg (25.7-33.7); MCHC 32.8 g/dl (32.0-36.0); MEAN CELL VOLUME 92.6 fl (80-96); MONO % 6.9 % (3.8-10.2); PLATELET COUNT 383 K/MM3 (134-434); RBC 3.99 M/mm3 (3.60-5.2); RDW 11.9 % (11.6-15.6); WHITE BLOOD COUNT 6.8 K/mm3 (4.0-10.8)
[2019-02-11 08:10] LABS: ANION GAP 9 MMOL/L (8-16); CALCIUM 9.3 mg/dl (8.5-10); CHLORIDE 103 mmol/L (98-107); CO2 30 mmol/L (21-32); CREATININE 0.7 mg/dl (0.55-1.3); GLUCOSE,RANDOM 85 mg/dl (74-106); POTASSIUM 4.6 mmol/L (3.5-5.1); SODIUM 142 mmol/L (136-145)
[2019-02-11] MEDS ORDERED: DEXTROSE 5%-WATER - 50 ML IVPB ONE ×2 (09:06→17:03)
[2019-02-11] MEDS ORDERED: PIPERACILLIN/TAZOBACTAM 3.375 GM VIAL IVPB ONE ×2 (09:06→17:03)
[2019-02-11] MEDS: ENOXAPARIN NA (PORCINE) 40 MG/0.4 ML DISP.SYRIN SQ SCH (09:16)
[2019-02-11] MEDS: LACTATED RINGERS SOLUTION 1,000 ML/1,000 ML INFUS.BAG IV SCH (09:16)
[2019-02-11] MEDS: LACTOBACILLUS ACIDOPHILUS 1 TABLET PO SCH (09:16)
[2019-02-11] MEDS: PANTOPRAZOLE SODIUM 40 MG VIAL IVPUSH SCH (09:17)
--- NOTE | 2019-02-11 09:36 | DS ---
Physical Exam: SUBJECTIVE: Patient seen and examined OBJECTIVE: Vital Signs Period Temp Pulse Resp BP Sys/Flor Pulse Ox Last 24 Hr 98.2 F-99.0 F 67-88 16-20 113-136/50-84 94-99 PHYSICAL EXAM GENERAL: The patient is awake, alert, and fully oriented, in no acute distress. HEAD: Normal with no signs of trauma. EYES: PERRL, extraocular movements intact, sclera anicteric, conjunctiva clear. ENT: Ears normal, nares patent, oropharynx clear without exudates, moist mucous membranes. NECK: Trachea midline, full range of motion, supple. LUNGS: Breath sounds equal, clear to auscultation bilaterally, no wheezes, no crackles, no accessory muscle use. HEART: Regular rate and rhythm, S1, S2 without murmur, rub or gallop. ABDOMEN: Soft, nontender, nondistended, normoactive bowel sounds, no guarding, no rebound, no hepatosplenomegaly, no masses. EXTREMITIES: 2+ pulses, warm, well-perfused, no edema. NEUROLOGICAL: Cranial nerves II through XII grossly intact. Normal speech, gait not observed. PSYCH: Normal mood, normal affect. SKIN: Warm, dry, normal turgor, no rashes or lesions noted. LABS Laboratory Results - last 24 hr 02/11/19 07:00 WBC 6.8 RBC 3.99 Hgb 12.1 Hct 37.0 MCV 92.6 MCH 30.3 MCHC 32.8 RDW 11.9 Plt Count 383 MPV 8.0 Absolute Neuts (auto) 4.4 Neutrophils % 64.0 Lymphocytes % 24.2 Monocytes % 6.9 Eosinophils % 4.9 H Basophils % 0.0 HOSPITAL COURSE: Date of Admission:02/03/19 Date of Discharge: 02/11/19 Discharge Summary Problems reviewed: Yes Reason For Visit: DIVERTICULITIS OF INTENSINE WITH ABSCESS Current Active Problems Diarrhea (Acute) Diverticulitis of intestine with abscess (Acute) Hypokalemia (Acute) Condition: Guarded - Instructions Diet, Activity, Other Instructions: report was given to rashmi at , second floor. 181 ambulance here to transport pt to . Referrals: Brandon Morales [Primary Care Provider] - - Home Medications Comprehensive Discharge Medication List: Ambulatory Orders Pantoprazole Sodium [Protonix -] 40 mg PO DAILY 02/03/19
[2019-02-11 09:53] LABS: BLOOD UREA NITROGEN < 5.0 mg/dl (7-18)
--- NOTE | 2019-02-11 14:04 | PN ---
Physical Exam: SUBJECTIVE: Patient seen and examined at bedside. Pain has almost completely resolved. Watery diarrhea persists. OBJECTIVE: Vital Signs Period Temp Pulse Resp BP Sys/Flor Pulse Ox Last 24 Hr 98.2 F-99.0 F 67-88 - 113-131/50-84 94-99 GENERAL: The patient is awake, alert, and fully oriented, in no acute distress. LUNGS: CTA HEART: Regular rate and rhythm, S1, S2 ABDOMEN: Soft, not tender, not distended EXTREMITIES: 2+ pulses, warm, well-perfused, no edema. NEUROLOGICAL: Cranial nerves II through XII grossly intact. Normal speech, gait not observed. Laboratory Results - last 24 hr 02/11/19 02/11/19 02/11/19 06:38 07:00 07:00 WBC 6.8 RBC 3.99 Hgb 12.1 Hct 37.0 MCV 92.6 MCH 30.3 MCHC 32.8 RDW 11.9 Plt Count 383 MPV 8.0 Absolute Neuts (auto) 4.4 Neutrophils % 64.0 Lymphocytes % 24.2 Monocytes % 6.9 Eosinophils % 4.9 H Basophils % 0.0 ESR 21 Sodium 142 Potassium 4.6 Chloride 103 Carbon Dioxide 30 Anion Gap 9 BUN < 5.0 L Creatinine 0.7 Est GFR (CKD-EPI)AfAm 115.45 Est GFR (CKD-EPI)NonAf 99.62 Random Glucose 85 Calcium 9.3 Magnesium 2.0 Active Medications Generic Name Dose Route Start Last Admin Trade Name Freq PRN Reason Stop Dose Admin Acetaminophen 650 mg 02/03/19 15:40 02/09/19 19:55 Tylenol - PO 650 mg Q6H PRN Administration FEVER Enoxaparin Sodium 40 mg 02/11/19 10:00 02/11/19 09:16 Lovenox - SQ 40 mg DAILY MARILUZ Administration Lactated Ringer's 1,000 ml in 1,000 mls @ 100 mls/hr 02/04/19 08:45 02/11/19 09:16 Lactated Ringers Solution IV 100 mls/hr ASDIR MARILUZ Administration Piperacillin Sod/Tazobactam 50 mls @ 100 mls/hr 02/04/19 18:00 02/11/19 09:18 Sod 3.375 gm/ Dextrose IVPB 100 mls/hr Q8H-IV MARILUZ Administration Protocol Lactobacillus Acidophilus 1 tab 02/09/19 12:15 02/11/19 09:16 Bacid - PO 1 tab DAILY MARILUZ Administration Morphine Sulfate 2 mg 02/03/19 22:32 02/06/19 21:42 Morphine Injection - IVPUSH 2 mg Q4H PRN Administration PAIN LEVEL 6-10 Pantoprazole Sodium 40 mg 02/04/19 10:00 02/11/19 09:17 Protonix Iv IVPUSH 40 mg DAILY MARILUZ Administration Imaging 02/03 CTAP: complex structure 4.1 x 2.9cm, left ovarian cyst v. abscess 02/06 CTAP: acute diverticulitis; increase in size 5.2 x 4.4cm with significant stranding/inflammation c/w perforation; second smaller fluid collection anterior to the midsigmoid 1.4cm suspicious for abscess ASSESSMENT/PLAN 53 year-old female with a PMH significant for GERD, restless leg syndrome s/p C- section. Admitted for acute sigmoid diverticulitis with possible abscess formation. Acute sigmoid diverticulitis Left ovarian cyst --repeat CT on 02/06 showed enlarging collection and development of a second collection --went for IR drainage 02/07, aspirated 3cc's of bloody fluid, sent for culture, still pending final read; possible tubular ovarian cyst caused by diverticulitis? --remains afebrile, no leukocytosis, and hemodynamically stable; continue Zosyn day #7 --blood cultures negative; stool cx negative; c.diff negative; abscess culture pending --surgery and ID following --CONTACT WORKER LITHOGRAPHY consult placed; US transvaginal done; CA 125, CEA pending GERD --continue protonix Restless leg syndrome --on no meds FEN Fluids: LR @ 100mL/hr Electrolytes: replete as indicated Nutrition: full liquids DVT prophylaxis: subq heparin Dispo: continues to require inpatient care. Full code Visit type - Emergency Visit Emergency Visit: Yes ED Registration Date: 02/03/19 Care time: The patient presented to the Emergency Department on the above date and was hospitalized for further evaluation of their emergent condition. - New Patient This patient is new to me today: No - Critical Care Critical Care patient: No
--- NOTE | 2019-02-11 15:51 | PN ---
Progress Note, Physician History of Present Illness: stable no pain still on liquids - Current Medication List Current Medications: Active Medications Acetaminophen (Tylenol -) 650 mg PO Q6H PRN PRN Reason: FEVER Last Admin: 02/09/19 19:55 Dose: 650 mg Enoxaparin Sodium (Lovenox -) 40 mg SQ DAILY MARILUZ Last Admin: 02/11/19 09:16 Dose: 40 mg Lactated Ringer's (Lactated Ringers Solution) 1,000 ml in 1,000 mls @ 100 mls/ hr IV ASDIR MARILUZ Last Admin: 02/11/19 09:16 Dose: 100 mls/hr Piperacillin Sod/Tazobactam (Sod 3.375 gm/ Dextrose) 50 mls @ 100 mls/hr IVPB Q8H-IV MARILUZ; Protocol Last Admin: 02/11/19 09:18 Dose: 100 mls/hr Lactobacillus Acidophilus (Bacid -) 1 tab PO DAILY MARILUZ Last Admin: 02/11/19 09:16 Dose: 1 tab Morphine Sulfate (Morphine Injection -) 2 mg IVPUSH Q4H PRN PRN Reason: PAIN LEVEL 6-10 Last Admin: 02/06/19 21:42 Dose: 2 mg Pantoprazole Sodium (Protonix Iv) 40 mg IVPUSH DAILY MARILUZ Last Admin: 02/11/19 09:17 Dose: 40 mg - Objective Vital Signs: Vital Signs Temperature 99.1 F 02/11/19 14:11 Pulse Rate 84 02/11/19 14:11 Respiratory Rate 16 02/11/19 14:11 Blood Pressure 117/76 02/11/19 14:11 O2 Sat by Pulse Oximetry (%) 95 02/11/19 14:11 Constitutional: Yes: No Distress, Calm Cardiovascular: Yes: S1, S2 Respiratory: Yes: Regular, CTA Bilaterally Gastrointestinal: Yes: Normal Bowel Sounds, Soft Musculoskeletal: Yes: WNL Extremities: Yes: WNL Neurological: Yes: Alert, Oriented Psychiatric: Yes: Alert, Oriented Labs: CBC, BMP 02/11/19 07:00 02/11/19 07:00 INR, PTT INR 1.52 (0.82-1.09) H 02/04/19 08:57 Assessment/Plan 53 year-old female with a PMH significant for GERD, restless leg syndrome s/p C- section. Admitted for acute sigmoid diverticulitis with possible abscess formation. ac diverticulitis abd pain abd abscess Problem List - Problems (1) Diverticulitis of intestine with abscess Code(s): K57.80 - DVTRCLI OF INTEST, PART UNSP, W PERF AND ABSCESS W/O BLEED Qualifiers: Diverticulitis site: large intestine Diverticulitis bleeding: unspecified bleeding status Qualified Code(s): K57.20 - Diverticulitis of large intestine with perforation and abscess without bleeding Assessment/Plan Acute sigmoid diverticulitis with local perforation/ collection s/p aspiration Diarrhea continue current mgmt rest as per the team
[2019-02-12] MEDS ORDERED: PIPERACILLIN/TAZOBACTAM 3.375 GM VIAL IVPB ONE ×3 (01:01→17:02)
[2019-02-12] MEDS ORDERED: DEXTROSE 5%-WATER - 50 ML IVPB ONE ×3 (01:01→17:02)
[2019-02-12] MEDS: PIPERACILLIN/TAZOB 3.375 GM 3.375 GM in DEXTROSE 5%-WATER - 50 ML IVPB SCH ×2 (01:02→10:26)
--- NOTE | 2019-02-12 08:08 | PN ---
Physical Exam: SUBJECTIVE: Patient seen and examined OBJECTIVE: Vital Signs Period Temp Pulse Resp BP Sys/Flor Pulse Ox Last 24 Hr 98.3 F-99.5 F 76-86 16-18 110-131/70-76 84-98 GENERAL: The patient is awake, alert, and fully oriented, in no acute distress. LUNGS: CTA HEART: Regular rate and rhythm, S1, S2 ABDOMEN: Soft, not tender, not distended EXTREMITIES: 2+ pulses, warm, well-perfused, no edema. NEUROLOGICAL: Cranial nerves II through XII grossly intact. Normal speech, gait not observed. Laboratory Results - last 24 hr 02/11/19 02/11/19 02/11/19 06:38 07:00 07:00 WBC 6.8 RBC 3.99 Hgb 12.1 Hct 37.0 MCV 92.6 MCH 30.3 MCHC 32.8 RDW 11.9 Plt Count 383 MPV 8.0 Absolute Neuts (auto) 4.4 Neutrophils % 64.0 Lymphocytes % 24.2 Monocytes % 6.9 Eosinophils % 4.9 H Basophils % 0.0 ESR 21 Sodium 142 Potassium 4.6 Chloride 103 Carbon Dioxide 30 Anion Gap 9 BUN < 5.0 L Creatinine 0.7 Est GFR (CKD-EPI)AfAm 115.45 Est GFR (CKD-EPI)NonAf 99.62 Random Glucose 85 Calcium 9.3 Magnesium 2.0 Active Medications Generic Name Dose Route Start Last Admin Trade Name Freq PRN Reason Stop Dose Admin Acetaminophen 650 mg 02/03/19 15:40 02/09/19 19:55 Tylenol - PO 650 mg Q6H PRN Administration FEVER Enoxaparin Sodium 40 mg 02/11/19 10:00 02/11/19 09:16 Lovenox - SQ 40 mg DAILY MARILUZ Administration Lactated Ringer's 1,000 ml in 1,000 mls @ 100 mls/hr 02/04/19 08:45 02/11/19 09:16 Lactated Ringers Solution IV 100 mls/hr ASDIR MARILUZ Administration Piperacillin Sod/Tazobactam 50 mls @ 100 mls/hr 02/04/19 18:00 02/12/19 01:02 Sod 3.375 gm/ Dextrose IVPB 100 mls/hr Q8H-IV MARILUZ Administration Protocol Lactobacillus Acidophilus 1 tab 02/09/19 12:15 02/11/19 09:16 Bacid - PO 1 tab DAILY MARILUZ Administration Morphine Sulfate 2 mg 02/03/19 22:32 02/06/19 21:42 Morphine Injection - IVPUSH 2 mg Q4H PRN Administration PAIN LEVEL 6-10 Pantoprazole Sodium 40 mg 02/04/19 10:00 02/11/19 09:17 Protonix Iv IVPUSH 40 mg DAILY MARILUZ Administration Microbiology 02/07/19 14:25 Abscess Gram Stain - Final 02/07/19 14:25 Abscess Body Fluid Culture - Final 02/07/19 14:25 Abscess Anaerobic Culture - Final NO ANAEROBES WERE ISOLATED 02/03/19 12:10 Blood - Peripheral Venous Blood Culture - Final NO GROWTH AFTER 5 DAYS INCUBATION 02/03/19 12:15 Blood - Peripheral Venous Blood Culture - Final NO GROWTH AFTER 5 DAYS INCUBATION 02/06/19 22:00 Stool Clostridioides difficile Antigen - Final 02/06/19 22:00 Stool Clostridioides difficile Toxin Assay - Final 02/05/19 06:45 Stool Gram Stain - Final 02/05/19 06:45 Stool Salmonella/Shigella Culture - Preliminary NO ENTERIC PATHOGENS, 24 HOURS, ON PRIMARY PLATES 02/05/19 06:45 Stool Yersinia Culture - Preliminary NO ENTERIC PATHOGENS, 24 HOURS, ON PRIMARY PLATES 02/05/19 06:45 Stool Vibrio Culture - Final NO GROWTH OF VIBRIO SPECIES OBTAINED 02/05/19 06:45 Stool Escherichia coli 0157 Culture - Final NO GROWTH OF E COLI 0157 OBTAINED Imaging 02/03 CTAP: complex structure 4.1 x 2.9cm, left ovarian cyst v. abscess 02/06 CTAP: acute diverticulitis; increase in size 5.2 x 4.4cm with significant stranding/inflammation c/w perforation; second smaller fluid collection anterior to the midsigmoid 1.4cm suspicious for abscess ASSESSMENT/PLAN 53 year-old female with a PMH significant for GERD, restless leg syndrome s/p C- section. Admitted for acute sigmoid diverticulitis with possible abscess formation. Acute sigmoid diverticulitis Left ovarian cyst --repeat CT on 02/06 showed enlarging collection and development of a second collection --went for IR drainage 02/07, aspirated 3cc's of bloody fluid; unclear if ovarian cyst --remains afebrile, no leukocytosis, all cultures negative --continue empiric Zosyn day #8 --surgery and ID following --COPPER PLATE LITHOGRAPHER consult placed; US transvaginal done; CA 125, CEA pending GERD --continue protonix Restless leg syndrome --on no meds FEN Fluids: LR @ 100mL/hr Electrolytes: replete as indicated Nutrition: full liquids DVT prophylaxis: subq heparin Dispo: continues to require inpatient care. Full code
[2019-02-12 08:49] VITALS: BP 125/71; PULSE 87; TEMP 97.9
[2019-02-12] MEDS: ENOXAPARIN NA (PORCINE) 40 MG/0.4 ML DISP.SYRIN SQ SCH (10:25)
[2019-02-12] MEDS: LACTOBACILLUS ACIDOPHILUS 1 TABLET PO SCH (10:25)
[2019-02-12] MEDS: PANTOPRAZOLE SODIUM 40 MG VIAL IVPUSH SCH (10:26)
[2019-02-12] MEDS ORDERED: LOPERAMIDE HCL 2 MG CAPSULE PO ONE (13:00)
[2019-02-12] MEDS: LACTATED RINGERS SOLUTION 1,000 ML/1,000 ML INFUS.BAG IV SCH (15:16)
--- NOTE | 2019-02-12 16:09 | PN ---
Progress Note, Physician History of Present Illness: stable doing well no abd pain tolerated diet - Current Medication List Current Medications: Active Medications Acetaminophen (Tylenol -) 650 mg PO Q6H PRN PRN Reason: FEVER Last Admin: 02/09/19 19:55 Dose: 650 mg Enoxaparin Sodium (Lovenox -) 40 mg SQ DAILY [facility] Last Admin: 02/12/19 10:25 Dose: 40 mg Lactated Ringer's (Lactated Ringers Solution) 1,000 ml in 1,000 mls @ 100 mls/ hr IV ASDIR MARILUZ Last Admin: 02/12/19 15:16 Dose: Not Given Piperacillin Sod/Tazobactam (Sod 3.375 gm/ Dextrose) 50 mls @ 100 mls/hr IVPB Q8H-IV MARILUZ; Protocol Last Admin: 02/12/19 10:26 Dose: 100 mls/hr Lactobacillus Acidophilus (Bacid -) 1 tab PO DAILY MARILUZ Last Admin: 02/12/19 10:25 Dose: 1 tab Morphine Sulfate (Morphine Injection -) 2 mg IVPUSH Q4H PRN PRN Reason: PAIN LEVEL 6-10 Last Admin: 02/06/19 21:42 Dose: 2 mg Pantoprazole Sodium (Protonix Iv) 40 mg IVPUSH DAILY [facility] Last Admin: 02/12/19 10:26 Dose: 40 mg - Objective Vital Signs: Vital Signs Temperature 97.9 F 02/12/19 08:48 Pulse Rate 87 02/12/19 08:48 Respiratory Rate 18 02/12/19 08:48 Blood Pressure 125/71 02/12/19 08:48 O2 Sat by Pulse Oximetry (%) 94 L 02/12/19 08:17 Constitutional: Yes: No Distress, Calm Cardiovascular: Yes: S1, S2 Respiratory: Yes: Regular, CTA Bilaterally Gastrointestinal: Yes: Normal Bowel Sounds, Soft Musculoskeletal: Yes: WNL Extremities: Yes: WNL Neurological: Yes: Alert, Oriented Psychiatric: Yes: Alert, Oriented Labs: CBC, BMP 02/11/19 07:00 02/11/19 07:00 INR, PTT INR 1.52 (0.82-1.09) H 02/04/19 08:57 Assessment/Plan 53 year-old female with a PMH significant for GERD, restless leg syndrome s/p C- section. Admitted for acute sigmoid diverticulitis with possible abscess formation. ac diverticulitis abd pain abd abscess Problem List - Problems (1) Diverticulitis of intestine with abscess Code(s): K57.80 - DVTRCLI OF INTEST, PART UNSP, W PERF AND ABSCESS W/O BLEED Qualifiers: Diverticulitis site: large intestine Diverticulitis bleeding: unspecified bleeding status Qualified Code(s): K57.20 - Diverticulitis of large intestine with perforation and abscess without bleeding Assessment/Plan Acute sigmoid diverticulitis with local perforation/ collection s/p aspiration Diarrhea continue current mgmt rest as per the team can change to oral flagyl and levaquin for 5 more days imaging studies after couple of months
--- NOTE | 2019-02-12 17:12 | DS ---
Physical Exam: SUBJECTIVE: Patient seen and examined. Denies pain. Tolerating soft diet. OBJECTIVE: Vital Signs Period Temp Pulse Resp BP Sys/Flor Pulse Ox Last 24 Hr 97.9 F-99.5 F 76-87 18-18 123-131/70-73 84-98 PHYSICAL EXAM GENERAL: The patient is awake, alert, and fully oriented, in no acute distress. LUNGS: CTA HEART: Regular rate and rhythm, S1, S2 ABDOMEN: Soft, not tender, not distended EXTREMITIES: 2+ pulses, warm, well-perfused, no edema. NEUROLOGICAL: Cranial nerves II through XII grossly intact. Normal speech, gait not observed. LABS Laboratory Results - last 24 hr 02/11/19 02/11/19 12:16 12:16 Carcinoembryonic Ag 1.3 CA 125 Antigen 63.9 H HOSPITAL COURSE: Date of Admission:02/03/19 Date of Discharge: 02/12/19 53 year-old female with a PMH significant for GERD, restless leg syndrome s/p C- section. Admitted for acute sigmoid diverticulitis with possible abscess formation. Acute sigmoid diverticulitis --initial CTAP on 02/03 showed acute sigmoid diverticultits with a complex structure 4.1 x 2.9cm, left ovarian cyst v. abscess. Transvaginal US on 02/04 reported a left ovarian cyst, possible complex cyst. Imaging was reviewed by IR and no intervention was deemed appropriate. Patient was kept NPO and treated with Zosyn. On 02/06, patient reported significant increase in abdominal pain. Repeat CT imaging showed collection slightly larger with significant stranding/ inflammation consistent with perforation and the formation of a second abscess. On 02/07 patient went to IR, 3cc's bloody fluid aspirated, and patient reported almost complete resolution of pain following this procedure. Antibiotics were continued and diet was cautiously advanced. Patient was seen by SERVICING MANAGER on 02/12. Patient was clinically improved at the time of discharge. She was discharged on levofloxacin and metronidazole to complete treatment of acute diverticulitis. The collection(s) seen on CT have not been definitively diagnosed. Patient advised and understands she needs outpatient followup, a CT in 2-4 weeks to assess the mass, if unchanged or bigger may require laparoscopic interrogation. Will also need to follow up with GI in 6 weeks for colonoscopy. Minutes to complete discharge: 35 Discharge Summary Problems reviewed: Yes Reason For Visit: DIVERTICULITIS OF INTENSINE WITH ABSCESS Current Active Problems Diarrhea (Acute) Diverticulitis of intestine with abscess (Acute) Hypokalemia (Acute) Condition: Improved - Instructions Diet, Activity, Other Instructions: Prescriptions have been sent to your pharmacy for two antibiotics, levofloxacin and metronidazole. Take these medications as prescribed and be sure to finish all the medication. Please call the offices of Dr. Simon Joy, anesthesiology crna, and make an appointment to see him in 3 weeks. Please also call the offices of Dr. Magdaleno Quiroga, hydrotel operator, and make an appointment to see him in 3 weeks as well. Return to the emergecy department for any new or worsening symptoms. Referrals: Simon Joy MD [Staff Physician] - 3 Weeks Magdaleno Quiroga MD [Staff Physician] - 3 Weeks Disposition: HOME - Home Medications Comprehensive Discharge Medication List: Ambulatory Orders Pantoprazole Sodium [Protonix -] 40 mg PO DAILY 02/03/19 Levofloxacin 750 mg PO DAILY #5 tablet 02/12/19 Metronidazole 500 mg PO TID #15 tablet 02/12/19 This patient is new to me today: No Emergency Visit: Yes ED Registration Date: 02/03/19 Care time: The patient presented to the Emergency Department on the above date and was hospitalized for further evaluation of their emergent condition. Critical Care patient: No - Discharge Referral Referred to [facility] No
--- NOTE | 2019-02-12 18:31 | CON.OBG ---
Consult Consult Specialty:: DIRECTOR OF DIETARY Referred by:: Aura Villegas Reason for Consultation:: left sided pelvic mass - History of Present Illness Chief Complaint: admitted w dx of diverticulitis History of Present Illness: Patient was admitted, treated w abx. Ct showed left sided mass ca 5 cm in diameter. Was in significant pain. Much better now. Repeated CT showed essentially no difference. Interventional rsadiology - obtained only 3 cc of bloody fluid. Patient, however , felt significant relief afterwards, Grew strep. She is 54 y.o. Para 1 with 1 c/s. LMP 2-3 wks ago. Irregular pattern. - History Source History Provided By: Patient, Caregiver Limitations to Obtaining History: No Limitations - Past Medical History TACTICAL RESPONSE GROUP OFFICER: No: Alzheimer's, CVA, Dementia, Migraine, Multiple Sclerosis, Peripheral Neuropathy, Parkinson's, Seizure, Syncope, TIA, Vertigo, Other Cardio/Vascular: No: AFIB, Aneurysm, Aortic Insufficiency, Aortic Stenosis, CAD , CHF, Deep Vein Thrombosis, HTN, Hyperlipdemia, ND, Mitral Insufficiency, Mitral Stenosis, Murmur, Pulmonary Hypertension, Other Pulmonary: No: Asthma, Bronchitis, Cancer, COPD, O2 Dependent, Pneumonia, Previously Intubated, Pulmonary Embolus, Pulmonary Fibrosis, Sleep Apnea, Other Gastrointestinal: No: Ascites, Cancer, Constipation, Crohn's Disease, Diverticulitis, Diverticulosis, Esophageal Varices, Gastritis, GERD, GI Bleed, Hemorrhoids, Hiatal Hernia, Inflamatory Bowel Disease, Irritable Bowel Disease, Pancreatitis, Peptic Ulcer Disease, Ulcerative Colitis, Other Hepatobiliary: No: Cirrhosis, Cholelithiasis, Cholecystitis, Choledocholithiasis , Hepatitis A, Hepatitis B, Hepatitis C, Other Renal/: No: Renal Failure, Renal Inusuff, BPH, Cancer, Hematuria, Hemodialysis , Neurogenic Bladder, Renal Calculi, UTI, Other Reproductive: No: Ectopic , Endometriosis, Fibroids, PID, Polycystic Ovary Syndrome, Postmenopausal, Other ...: No Heme/Onc: No: Anemia, B12 Deficiency, Bleeding Disorder, Cancer, Current Chemotherapy, Current Radiation Therapy, Hemochromatosis, Hypercoaguable State, Myeloproliferative Synd, Sickle Cell Disease, Sickle Cell Trait, Thrombocytopenia, Other Infectious Disease: No: AIDS, C-Diff, Herpes Zoster, HIV, MRSA, STD's, Tuberculosis, VREF, Other Psych: No: Addictions, Anxiety, Bipolar, Depression, Panic, Psychosis, Schizophrenia, Other Musculoskeletal: No: Bursitis, Chronic low back pain, Hemiparesis, Hemiplegia, Osteoarthritis, Paraplegia, Other Rheumatology: No: Fibromyalgia, Gout, Lupus, Rheumatoid Arthritis, Sarcoidosis, Vasculitis, Other ENT: No: Allergic Rhinitis, Sinusitis, Other Endocrine: No: Kavon's Disease, Mineral's Disease, Diabetes Insipidus, Diabetes Mellitus, Hyperparathyroidism, Hyperthyroidism, Hypothyroidism, Osteopenia, SIADH, Other Dermatology: No: Basal Cell, Cellulitis, Eczema, Melanoma, Psoriasis, Squamous Cell, Other - Past Surgical History Past Surgical History: No: None, AAA Repair, AICD, Amputation, Appendectomy, Arthrosocopy, AV Fistula/Graft, Bariatric Surgery, Breast Biopsy, Bypass, CABG, Carotid Endarterectomy, Cataract Removal, Cholecystectomy, Colectomy, Colonoscopy, Colostomy, Craniotomy, , Cystectomy, Hernia Repair, Hysterectomy, Ileal Conduit, Ileosotomy, Joint Replacement, Kidney Transplant, Laminectomy, Liver Transplant, Mastectomy, Nephrectomy, Oopherectomy, Orchiectomy, Permanent Pacemaker, Prostatectomy, Splenectomy, Stent, Thoracotomy , TURP, Tonsillectomy, Tubal Ligation, Upper Endoscopy, Valve Replacement, Vasectomy, Vein Stripping/Ligation - Alcohol/Substance Use Hx Alcohol Use: No - Smoking History Smoking history: Former smoker Have you smoked in the past 12 months: No If you are a former smoker, when did you quit?: 2005 Home Medications - Allergies Allergies/Adverse Reactions: Allergies Allergy/AdvReac Type Severity Reaction Status Date / Time No Known Allergies Allergy Verified 02/03/19 09:15 - Home Medications Home Medications: Ambulatory Orders Pantoprazole Sodium [Protonix -] 40 mg PO DAILY 02/03/19 Levofloxacin 750 mg PO DAILY #5 tablet 02/12/19 Metronidazole 500 mg PO TID #15 tablet 02/12/19 Review of Systems - Review of Systems Constitutional: denies: No Symptoms, Chills, Diaphoresis, Fever, Lethargy, Loss of Appetite, Malaise, Night Sweats, Unintentional Wgt. Loss, Weakness, Other HENT: denies: No Symptoms, Difficult Swallowing, Ear Discharge, Ear Pain, Epistaxis, Gingival Bleeding, Hearing Loss, Mouth Swelling, Nasal Congestion, Ocular Prosthesis, Throat Pain, Toothache, Ringing in Ears, Other Respiratory: denies: No Symptoms, Cough, Exercise Intolerance, Hemoptysis, Orthopnea, PND, Snoring, SOB, SOB on Exertion, Wheezing, Other Gastrointestinal: denies: No Symptoms, Abdominal Pain, Bloating, Constipation, Diarrhea, Dysphagia, Indigestion, Melena, Nausea, Rectal Bleeding, Vomiting, Vomiting Blood, Other Genitourinary: reports: Hematuria Breasts: denies: No Symptoms Reported, See HPI, Breast Implants, Discharge from Nipple, Lumps, Pain, Skin Changes, Other Musculoskeletal: denies: No Symptoms, Back Pain, Crepitus, Decreased ROM, Extremity Pain, Joint Pain, Joint Swelling, Muscle Pain, Muscle Cramps, Muscle Weakness, Other Integumentary: denies: No Symptoms, Blister, Bruising, Change in Color, Eczema, Erythema, Incision, Lesions, Lump, Pallor, Pruritis, Rash, Wound, Other Neurological: denies: No Symptoms, Change in LOC, Change in Speech, Confusion, Dizziness, Headache, Incoordination, Numbness, Parasthesia, Pre-Existing Deficit , Seizure, Syncope, Tremors, Unsteady Gait, Weakness, Other Endocrine: denies: No Symptoms, Excessive Sweating, Flushing, Increased Hunger, Increased Thirst, Intolerance to Cold, Intolerance to Heat, Unexplained Weight Gain, Unexplained Weight Loss, Other Hematology/Lymphatic: denies: No Symptoms, Easily Bruised, Excessive Bleeding, Swollen Glands, Other Psychiatric: denies: No Symptoms, Altered Sleep Pattern, Anxiety, Depression, Hallucinations, Panic, Paranoia, Suicidal, Other Physical Exam-DIRECTOR OF DIETARY Vital Signs: Vital Signs Temperature 97.9 F 02/12/19 08:48 Pulse Rate 87 02/12/19 08:48 Respiratory Rate 18 02/12/19 08:48 Blood Pressure 125/71 02/12/19 08:48 O2 Sat by Pulse Oximetry (%) 94 L 02/12/19 08:17 Constitutional: Yes: Well Nourished, No Distress, Calm Eyes: Yes: WNL, Conjunctiva Clear, EOM Intact HENT: Yes: WNL, Atraumatic, Normocephalic Neck: Yes: WNL, Supple, Trachea Midline Cardiovascular: Yes: WNL, Regular Rate and Rhythm Respiratory: Yes: WNL, Regular, CTA Bilaterally Gastrointestinal: Yes: WNL, Soft ...Rectal Exam: Yes: WNL Renal/: Yes: WNL Uterus: Yes: Freely Moveable (Mobile without T. Upper N/S.) Adnexa: Normal: Left, Not Palpable: Right Musculoskeletal: Yes: WNL Extremities: Yes: WNL Integumentary: Yes: WNL Wound/Incision: No: Clean/Dry, Well Approximated, Sutures Intact, Becka Intact , Steri Strips, Open to air, Dressing Dry and Intact, Dressing Removed, Becka Removed, Sutures Removed, Draining, Reddened, Bleeding, Excoriated, Unapproximated, Other Neurological: Yes: WNL, Alert, Oriented ...Motor Strength: WNL Psychiatric: Yes: WNL, Alert, Oriented Labs: CBC, BMP 02/11/19 07:00 02/11/19 07:00 Problem List - Problems (1) Pelvic mass in female Code(s): R19.00 - INTRA-ABD AND PELVIC SWELLING, MASS AND LUMP, UNSP SITE Assessment/Plan Examination done, no significant findings. Images reviewed. TV sono show cyst 2.5cm. Pelvic exam. Cx, uterus WNL. No T on motion. Adnexa non-palpable, unable to palpate s mass. Doubt gynecological origin. CA 125, CEA pending. R/O diverticular abscess; sigmoid ca. Recommended: Discharge today. Patient feels well now and agrees. Continue abx. F/U CT in 2-4 wks to asses the mass. If unchanged or bigger laparoscopic interrogation may be necessary. Discussed w pt. and Ms. Villegas.
== END 2019-02-12 18:20 | disposition home or self-care (01) | DRG 392 ==
LOC: SUPCPDRO 08:59 → FER 08:59 → FM/S 12:13 → JSAMEDAYSX 02-07 12:47 → FM/S 02-07 18:21
PROVIDERS: ATTEND Nurse Practitioner Acute Care
DX: K57.20 Diverticulitis of large intestine with perforation and abscess without bleeding (principal); E66.2 Morbid (severe) obesity with alveolar hypoventilation; D68.9 Coagulation defect, unspecified; N83.202 Unspecified ovarian cyst, left side; K21.9 Gastro-esophageal reflux disease without esophagitis; G25.81 Restless legs syndrome; E66.9 Obesity, unspecified; Z68.34 Body mass index [BMI] 34.0-34.9, adult; F17.210 Nicotine dependence, cigarettes, uncomplicated; J44.9 Chronic obstructive pulmonary disease, unspecified; E88.09 Other disorders of plasma-protein metabolism, not elsewhere classified; E83.42 Hypomagnesemia; E87.6 Hypokalemia; R19.7 Diarrhea, unspecified; R19.00 Intra-abdominal and pelvic swelling, mass and lump, unspecified site
CPT/HCPCS: 36415; 49407; 74177-TC; 76098-TC-FY; 76705-TC; 76830-TC; 76856-TC; 80048; 80053; 81003; 81015; 82150; 82378; 82550; 83605; 83631; 83735; 84484; 85025; 85610; 85651; 86140; 86304; 86850; 86900; 86901; 87040; 87045; 87046; 87070; 87075; 87205; 87324; 87449; 87899; 93005; 99284-25; C1769; J0131; J1644; J7030; Q9967

== ENCOUNTER 2019-05-06 08:53 | Day surgery (SDC) | payer BC ==
[2019-05-06 09:29] VITALS: BMI 33.2
[2019-05-06 09:59] VITALS: TEMP 98.2
[2019-05-06 10:24] VITALS: BP 130/70
[2019-05-06 10:34] VITALS: PULSE 66
--- NOTE | 2019-05-07 16:21 | PATH ---
Surgical Pathology Report Patient Name: ANGELITA SALAMANCA [facility]. Rec. #: [id number] /Age/Gender: 1965 (Age: 54) / F Account: [id number] Location: [facility]-ENDOSCOPY Taken: 05/06/2019 Received: 05/06/2019 Reported: 05/07/2019 Physicians: Magdaleno Quiroga M.D. Specimen(s) Received SIGMOID POLYP Clinical History Routine screening colonoscopy Postoperative diagnosis: Diverticulosis, sigmoid polyp Final Diagnosis SIGMOID COLON, POLYP, BIOPSY: HYPERPLASTIC POLYP. Electronically Signed Maria Luz Chambers M.D. Gross Description Received in formalin, labeled "sigmoid polyp biopsy" is a chan, irregular portion of soft tissue measuring 0.3 cm. in greatest dimension. The specimen is submitted in toto in one cassette. 05/06/2019 [facility]05/06/2019
== END 2019-05-06 10:30 | disposition home or self-care (01) ==
LOC: JASU-ENDO 08:53
PROVIDERS: ATTEND Internal Medicine Gastroenterology
PROC: 0DBN8ZX Excision of Sigmoid Colon, Via Natural or Artificial Opening Endoscopic, Diagnostic (ICD-10-PCS; principal; 2019-05-06 08:45)
DX: Z12.11 Encounter for screening for malignant neoplasm of colon (principal); D12.5 Benign neoplasm of sigmoid colon; K57.30 Diverticulosis of large intestine without perforation or abscess without bleeding; K58.9 Irritable bowel syndrome, unspecified
CPT/HCPCS: 81025; 88305-TC

== ENCOUNTER 2021-01-20 14:02 | Inpatient (IN) | payer BC ==
[2021-01-20] MEDS ORDERED: LACTATED RINGERS SOLUTION 1000 ML INFUS.BAG IV ONE ×2 (14:13→14:15)
[2021-01-20] MEDS ORDERED: ACETAMINOPHEN 1000 MG/100 ML VIAL IVPB ONE (14:25)
[2021-01-20] MEDS ORDERED: morphine CARPU-JECT 4 MG/1 ML DISP.SYRIN IVPUSH ONE (14:25)
[2021-01-20] MEDS ORDERED: morphine SULFATE 4 MG/ML VIAL ONE (14:32)
[2021-01-20] MEDS ORDERED: ACETAMINOPHEN INJECTION 100 ML IVPB ONE ×2 (14:32→20:55)
[2021-01-20 14:58] LABS: HEMATOCRIT 34.9 % (32.4-45.2); HEMOGLOBIN 11.5 GM/dl (10.7-15.3); MCH 30.3 pg (25.7-33.7); MEAN CELL VOLUME 91.9 fl (80-96); MEAN PLT VOLUME 7.9 fl (7.5-11.1); PLATELET COUNT 253 10^3/uL (134-434); RDW 11.6 % (11.6-15.6); WHITE BLOOD COUNT 9.3 K/mm3 (4.0-10.8)
[2021-01-20 15:00] LABS: ADD RBC MORPHOLOGY YES; ALBUMIN 3.4 g/dl (3.4-5.0); CALCIUM 8.9 mg/dl (8.5-10); CREATININE 0.6 mg/dl (0.55-1.3); TOT PROT 6.4 g/dl (6.4-8.2)
[2021-01-20] MEDS ORDERED: POTASSIUM CHLORIDE TABS 20 MEQ TABLET.ER (FP) PO ONE ×2 (15:12→16:39)
[2021-01-20 15:48] LABS: PLATELET ESTIMATE ADEQUATE
[2021-01-20] MEDS ORDERED: PIPERACILLIN/TAZOB 4.5 GM 4.5 GM in DEXTROSE 5%-WATER 100 ML IVPB ONE (16:20)
[2021-01-20] MEDS ORDERED: morphine SULFATE 4 MG/ML VIAL IVPUSH PRN (16:34)
[2021-01-20] MEDS ORDERED: PIPERACILLIN/TAZOBACTAM 4.5 GM VIAL IVPB ONE (16:39)
[2021-01-20 16:48] LABS: EPITHELIAL CELLS FEW /hpf
[2021-01-20] MEDS: ACETAMINOPHEN 1000 MG/100 ML VIAL IVPB PRN (20:56)
[2021-01-20] MEDS: D5-NS + 20 MEQ KCL - 20 MEQ/1,000 ML INFUS.BAG IV SCH (22:35)
[2021-01-21] MEDS ORDERED: morphine SULFATE 4 MG/ML VIAL ONE (04:20)
[2021-01-21] MEDS ORDERED: ONDANSETRON 4 MG/2 ML VIAL IVPUSH ONE (05:19)
[2021-01-21] MEDS ORDERED: ONDANSETRON 4 MG/2 ML VIAL ONE (05:22)
[2021-01-21] MEDS: D5-NS + 20 MEQ KCL - 20 MEQ/1,000 ML INFUS.BAG IV SCH ×2 (08:19→22:57)
[2021-01-21] MEDS ORDERED: SODIUM CHLORIDE 1,000 ML IV STA (08:25)
[2021-01-21] MEDS ORDERED: DEXTROSE 5%-WATER 100 ML IVPB ONE (10:20)
[2021-01-21] MEDS: PANTOPRAZOLE 40 MG TABLET PO SCH (10:26)
[2021-01-21] MEDS: CEFTRIAXONE 2 GM in DEXTROSE 5%-WATER 2 GM/100 ML BAG IVPB SCH (10:26)
[2021-01-21] MEDS: ACETAMINOPHEN 1000 MG/100 ML VIAL IVPB PRN (11:15)
[2021-01-21 11:38] LABS: BASO % 0.3 % (0-2.0); EOS % 0.7 % (0-4.5); HEMATOCRIT 33.6 % (32.4-45.2); HEMOGLOBIN 11.7 GM/dL (10.7-15.3); LYMPH % 17.1 % (8-40); MCHC 34.7 g/dl (32.0-36.0); MEAN CELL VOLUME 89.3 fl (80-96); MEAN PLT VOLUME 7.7 fl (7.5-11.1); MONO % 6.7 % (3.8-10.2); NEUT % 75.2 % (42.8-82.8); PLATELET COUNT 267 10^3/uL (134-434); RBC 3.76 M/mm3 (3.60-5.2); RDW 12.1 % (11.6-15.6); WHITE BLOOD COUNT 6.7 K/mm3 (4.0-10.0)
[2021-01-21 11:49] LABS: INR 1.31 (0.83-1.09); PROTHROMBIN TIME (PATIENT) 15.4 SEC (9.7-13.0)
[2021-01-21 12:04] LABS: CALCIUM 8.7 mg/dL (8.5-10.1)
[2021-01-21 12:05] LABS: ALBUMIN 2.8 g/dl (3.4-5.0); BLOOD UREA NITROGEN 7.4 mg/dL (7-18); MAGNESIUM 2.2 mg/dL (1.8-2.4)
[2021-01-21 12:08] LABS: CREATININE 0.6 mg/dL (0.55-1.3)
[2021-01-21 12:10] LABS: BILIRUBIN,TOTAL 0.6 mg/dL (0.2-1); TOT PROT 6.3 g/dl (6.4-8.2)
[2021-01-21 12:51] VITALS: BMI 34.4
[2021-01-21] MEDS ORDERED: ACETAMINOPHEN 1000 MG/100 ML VIAL IVPB ONE (20:17)
[2021-01-22] MEDS: D5-NS + 20 MEQ KCL - 20 MEQ/1,000 ML INFUS.BAG IV SCH ×3 (01:35→22:45)
[2021-01-22 08:12] LABS: BASO % 0.4 % (0-2.0); HEMOGLOBIN 11.6 GM/dL (10.7-15.3); LYMPH % 17.9 % (8-40); MCH 31.8 pg (25.7-33.7); MCHC 36.1 g/dl (32.0-36.0); MEAN CELL VOLUME 88.3 fl (80-96); MEAN PLT VOLUME 7.9 fl (7.5-11.1); NEUT % 71.7 % (42.8-82.8); PLATELET COUNT 275 10^3/uL (134-434); RBC 3.63 M/mm3 (3.60-5.2); RDW 12.4 % (11.6-15.6); WHITE BLOOD COUNT 7.1 K/mm3 (4.0-10.0)
[2021-01-22 08:33] LABS: CALCIUM 8.1 mg/dL (8.5-10.1)
[2021-01-22 08:34] LABS: MAGNESIUM 2.1 mg/dL (1.8-2.4)
[2021-01-22 08:37] LABS: CREATININE 0.7 mg/dL (0.55-1.3)
[2021-01-22] MEDS ORDERED: DEXTROSE 5%-WATER 100 ML IVPB ONE ×2 (09:31→17:03)
[2021-01-22] MEDS: PANTOPRAZOLE 40 MG TABLET PO SCH (09:32)
[2021-01-22] MEDS: CEFTRIAXONE 2 GM in DEXTROSE 5%-WATER 2 GM/100 ML BAG IVPB SCH (09:32)
[2021-01-22] MEDS: ACETAMINOPHEN 1000 MG/100 ML VIAL IVPB PRN ×2 (09:33→20:15)
[2021-01-22] MEDS ORDERED: MEROPENEM 1 GM VIAL (RESTRICTED TO ID) IVPB ONE (17:03)
[2021-01-22] MEDS: MEROPENEM 1 GM in DEXTROSE 5%-WATER 100 ML IVPB SCH (17:14)
[2021-01-23] MEDS ORDERED: MEROPENEM 1 GM VIAL (RESTRICTED TO ID) IVPB ONE ×3 (01:26→17:47)
[2021-01-23] MEDS ORDERED: DEXTROSE 5%-WATER 100 ML IVPB ONE ×3 (01:27→17:48)
[2021-01-23] MEDS: D5-NS + 20 MEQ KCL - 20 MEQ/1,000 ML INFUS.BAG IV SCH ×3 (01:35→23:59)
[2021-01-23] MEDS: MEROPENEM 1 GM in DEXTROSE 5%-WATER 100 ML IVPB SCH ×3 (01:36→17:52)
[2021-01-23] MEDS: ONDANSETRON 4 MG/2 ML VIAL IVPUSH ONE ×2 (06:48→06:56)
[2021-01-23] MEDS ORDERED: ONDANSETRON 4 MG/2 ML VIAL ONE (06:55)
[2021-01-23] MEDS: ACETAMINOPHEN 1000 MG/100 ML VIAL IVPB PRN ×2 (07:01→17:51)
[2021-01-23 07:28] LABS: BASO % 0.3 % (0-2.0); EOS % 2.6 % (0-4.5); HEMATOCRIT 37.5 % (32.4-45.2); HEMOGLOBIN 13.3 GM/dL (10.7-15.3); MCH 31.1 pg (25.7-33.7); MCHC 35.5 g/dl (32.0-36.0); MEAN CELL VOLUME 87.8 fl (80-96); MEAN PLT VOLUME 7.7 fl (7.5-11.1); MONO % 7.3 % (3.8-10.2); NEUT % 68.8 % (42.8-82.8); PLATELET COUNT 307 10^3/uL (134-434); RBC 4.27 M/mm3 (3.60-5.2); RDW 12.4 % (11.6-15.6); WHITE BLOOD COUNT 5.8 K/mm3 (4.0-10.0)
[2021-01-23 07:41] LABS: ALBUMIN 2.9 g/dl (3.4-5.0); CALCIUM 8.8 mg/dL (8.5-10.1)
[2021-01-23 07:42] LABS: BLOOD UREA NITROGEN 6.4 mg/dL (7-18); MAGNESIUM 2.1 mg/dL (1.8-2.4)
[2021-01-23 07:45] LABS: CREATININE 0.6 mg/dL (0.55-1.3)
[2021-01-23 07:46] LABS: BILIRUBIN,TOTAL 0.3 mg/dL (0.2-1); TOT PROT 6.4 g/dl (6.4-8.2)
[2021-01-23] MEDS: PANTOPRAZOLE 40 MG TABLET PO SCH (10:15)
[2021-01-23] MEDS ORDERED: morphine SULFATE 4 MG/ML VIAL IVPUSH PRN (17:29)
[2021-01-24] MEDS ORDERED: MAG HYDROX/AL HYDROX/SIMETH 30 ML UNIT-DOSE CUP PO ONE (01:25)
[2021-01-24] MEDS ORDERED: DEXTROSE 5%-WATER 100 ML IVPB ONE ×3 (01:42→18:02)
[2021-01-24] MEDS ORDERED: MEROPENEM 1 GM VIAL (RESTRICTED TO ID) IVPB ONE ×3 (01:42→18:01)
[2021-01-24] MEDS: MEROPENEM 1 GM in DEXTROSE 5%-WATER 100 ML IVPB SCH ×3 (01:47→18:21)
[2021-01-24] MEDS: ACETAMINOPHEN 1000 MG/100 ML VIAL IVPB PRN ×2 (03:06→12:09)
[2021-01-24 08:02] LABS: BASO % 0.4 % (0-2.0); EOS % 4.4 % (0-4.5); HEMATOCRIT 37.9 % (32.4-45.2); HEMOGLOBIN 13.2 GM/dL (10.7-15.3); LYMPH % 23.6 % (8-40); MCH 31.2 pg (25.7-33.7); MCHC 34.9 g/dl (32.0-36.0); MEAN CELL VOLUME 89.4 fl (80-96); MEAN PLT VOLUME 7.7 fl (7.5-11.1); MONO % 7.4 % (3.8-10.2); NEUT % 64.2 % (42.8-82.8); PLATELET COUNT 334 10^3/uL (134-434); RBC 4.24 M/mm3 (3.60-5.2); RDW 12.7 % (11.6-15.6); WHITE BLOOD COUNT 8.1 K/mm3 (4.0-10.0)
[2021-01-24 08:24] LABS: BLOOD UREA NITROGEN 6.6 mg/dL (7-18); CALCIUM 8.8 mg/dL (8.5-10.1)
[2021-01-24 08:25] LABS: ALBUMIN 2.7 g/dl (3.4-5.0); MAGNESIUM 2.2 mg/dL (1.8-2.4)
[2021-01-24 08:27] LABS: CREATININE 0.6 mg/dL (0.55-1.3)
[2021-01-24 08:28] LABS: BILIRUBIN,TOTAL 0.4 mg/dL (0.2-1); TOT PROT 6.1 g/dl (6.4-8.2)
[2021-01-24] MEDS: PANTOPRAZOLE 40 MG TABLET PO SCH (10:41)
[2021-01-24] MEDS: D5-NS + 20 MEQ KCL - 20 MEQ/1,000 ML INFUS.BAG IV SCH ×2 (18:21→22:11)
[2021-01-24] MEDS ORDERED: ACETAMINOPHEN 1000 MG/100 ML VIAL IVPB PRN (20:11)
[2021-01-25] MEDS ORDERED: DEXTROSE 5%-WATER 100 ML IVPB ONE ×3 (01:57→18:07)
[2021-01-25] MEDS ORDERED: MEROPENEM 1 GM VIAL (RESTRICTED TO ID) IVPB ONE ×3 (01:57→18:07)
[2021-01-25] MEDS: MEROPENEM 1 GM in DEXTROSE 5%-WATER 100 ML IVPB SCH ×3 (01:59→18:12)
[2021-01-25 07:29] LABS: BASO % 0.4 % (0-2.0); HEMATOCRIT 36.9 % (32.4-45.2); LYMPH % 20.8 % (8-40); MCH 31.3 pg (25.7-33.7); MCHC 35.2 g/dl (32.0-36.0); MEAN PLT VOLUME 7.6 fl (7.5-11.1); MONO % 7.2 % (3.8-10.2); NEUT % 67.6 % (42.8-82.8); PLATELET COUNT 342 10^3/uL (134-434); RBC 4.15 M/mm3 (3.60-5.2); RDW 12.3 % (11.6-15.6); WHITE BLOOD COUNT 8.6 K/mm3 (4.0-10.0)
[2021-01-25 07:36] LABS: INR 1.24 (0.83-1.09); PROTHROMBIN TIME (PATIENT) 13.9 SEC (9.7-13.0)
[2021-01-25 07:57] LABS: ALBUMIN 2.6 g/dl (3.4-5.0); BLOOD UREA NITROGEN 6.4 mg/dL (7-18); MAGNESIUM 2.1 mg/dL (1.8-2.4)
[2021-01-25 07:58] LABS: CALCIUM 8.9 mg/dL (8.5-10.1)
[2021-01-25 08:00] LABS: CREATININE 0.6 mg/dL (0.55-1.3)
[2021-01-25 08:01] LABS: BILIRUBIN,TOTAL 0.3 mg/dL (0.2-1)
[2021-01-25 08:02] LABS: TOT PROT 6.1 g/dl (6.4-8.2)
[2021-01-25] MEDS: PANTOPRAZOLE 40 MG TABLET PO SCH (09:08)
[2021-01-25] MEDS ORDERED: FAMOTIDINE 20 MG TABLET PO PRN (10:11)
[2021-01-25] MEDS: D5-NS + 20 MEQ KCL - 20 MEQ/1,000 ML INFUS.BAG IV SCH (22:29)
[2021-01-26] MEDS ORDERED: MEROPENEM 1 GM VIAL (RESTRICTED TO ID) IVPB ONE ×3 (00:37→17:05)
[2021-01-26] MEDS ORDERED: DEXTROSE 5%-WATER 100 ML IVPB ONE ×3 (00:38→17:05)
[2021-01-26] MEDS: MEROPENEM 1 GM in DEXTROSE 5%-WATER 100 ML IVPB SCH ×3 (01:33→17:31)
[2021-01-26] MEDS: D5-NS + 20 MEQ KCL - 20 MEQ/1,000 ML INFUS.BAG IV SCH ×2 (05:31→21:53)
[2021-01-26 07:56] LABS: BASO % 0.3 % (0-2.0); EOS % 3.3 % (0-4.5); HEMATOCRIT 36.5 % (32.4-45.2); HEMOGLOBIN 12.8 GM/dL (10.7-15.3); LYMPH % 21.1 % (8-40); MCHC 35.1 g/dl (32.0-36.0); MEAN CELL VOLUME 88.3 fl (80-96); MEAN PLT VOLUME 7.7 fl (7.5-11.1); MONO % 5.6 % (3.8-10.2); NEUT % 69.7 % (42.8-82.8); PLATELET COUNT 327 10^3/uL (134-434); RBC 4.14 M/mm3 (3.60-5.2); RDW 12.6 % (11.6-15.6); WHITE BLOOD COUNT 8.5 K/mm3 (4.0-10.0)
[2021-01-26 19:29] LABS: ALBUMIN 2.9 g/dl (3.4-5.0); BILIRUBIN,TOTAL 0.3 mg/dL (0.2-1); BLOOD UREA NITROGEN 6.9 mg/dL (7-18); CALCIUM 9.3 mg/dL (8.5-10.1); CREATININE 0.6 mg/dL (0.55-1.3); MAGNESIUM 2.3 mg/dL (1.8-2.4); TOT PROT 6.4 g/dl (6.4-8.2)
[2021-01-26] MEDS: HEPARIN NA (PORCINE) 5,000 UNITS/ML 1ML VIAL SQ SCH (21:54)
[2021-01-27] MEDS ORDERED: MEROPENEM 1 GM VIAL (RESTRICTED TO ID) IVPB ONE ×2 (01:32→09:10)
[2021-01-27] MEDS ORDERED: DEXTROSE 5%-WATER 100 ML IVPB ONE ×2 (01:32→09:10)
[2021-01-27] MEDS: MEROPENEM 1 GM in DEXTROSE 5%-WATER 100 ML IVPB SCH ×2 (01:45→09:14)
[2021-01-27 06:55] VITALS: BP 139/86; PULSE 85; TEMP 98.5
[2021-01-27 09:11] LABS: BASO % 0.4 % (0-2.0); EOS % 2.7 % (0-4.5); HEMATOCRIT 36.2 % (32.4-45.2); HEMOGLOBIN 12.7 GM/dL (10.7-15.3); MCH 31.2 pg (25.7-33.7); MEAN PLT VOLUME 7.7 fl (7.5-11.1); MONO % 5.4 % (3.8-10.2); NEUT % 74.5 % (42.8-82.8); PLATELET COUNT 314 10^3/uL (134-434); RBC 4.06 M/mm3 (3.60-5.2); RDW 12.6 % (11.6-15.6); WHITE BLOOD COUNT 9.7 K/mm3 (4.0-10.0)
[2021-01-27] MEDS: HEPARIN NA (PORCINE) 5,000 UNITS/ML 1ML VIAL SQ SCH (09:15)
[2021-01-27] MEDS ORDERED: LACTOBACILLUS ACIDOPHILUS 1 TABLET PO SCH (10:00)
[2021-01-27 12:45] LABS: ALBUMIN 2.9 g/dl (3.4-5.0); BILIRUBIN,TOTAL 0.4 mg/dL (0.2-1); BLOOD UREA NITROGEN 8.6 mg/dL (7-18); CREATININE 0.5 mg/dL (0.55-1.3); MAGNESIUM 2.3 mg/dL (1.8-2.4); TOT PROT 6.4 g/dl (6.4-8.2)
== END 2021-01-27 14:36 | disposition home or self-care (01) | DRG 392 ==
LOC: FER 14:02 → J4S 01-21 08:14 → J8W 01-27 06:42
PROVIDERS: ADMIT Internal Medicine; ATTEND Nurse Practitioner Family
DX: K57.32 Diverticulitis of large intestine without perforation or abscess without bleeding (principal); N39.0 Urinary tract infection, site not specified; K50.10 Crohn's disease of large intestine without complications; R10.32 Left lower quadrant pain; K21.9 Gastro-esophageal reflux disease without esophagitis; G25.81 Restless legs syndrome; K76.0 Fatty (change of) liver, not elsewhere classified; E87.6 Hypokalemia; R19.7 Diarrhea, unspecified; N83.209 Unspecified ovarian cyst, unspecified side; K57.90 Diverticulosis of intestine, part unspecified, without perforation or abscess without bleeding; B96.1 Klebsiella pneumoniae [K. pneumoniae] as the cause of diseases classified elsewhere
CPT/HCPCS: 36415; 74177-TC; 80048; 80053; 81003; 81015; 83605; 83690; 83735; 85025; 85610; 85730; 86140; 86850; 86900; 86901; 87040; 87045; 87046; 87086; 87177; 87186; 87205; 87209; 87324; 87449; 93005; 99285-25; C9803; J0131; J1644; Q9967; U0003; U0005

== ENCOUNTER 2021-02-11 21:32 | Inpatient (IN) | payer BC ==
[2021-02-11] MEDS ORDERED: ACETAMINOPHEN 1000 MG/100 ML VIAL IVPB ONE (22:10)
[2021-02-11] MEDS ORDERED: SODIUM CHLORIDE 0.9% 500 ML INFUS.BAG IV ONE (22:10)
[2021-02-11] MEDS ORDERED: ACETAMINOPHEN INJECTION 100 ML IVPB ONE (22:19)
[2021-02-11 22:42] LABS: BASO % 0.4 % (0-2.0); EOS % 1.3 % (0-4.5); HEMATOCRIT 35.4 % (32.4-45.2); HEMOGLOBIN 12.2 GM/dL (10.7-15.3); LYMPH % 12.4 % (8-40); MCH 30.6 pg (25.7-33.7); MCHC 34.3 g/dl (32.0-36.0); MEAN PLT VOLUME 7.9 fl (7.5-11.1); NEUT % 80.9 % (42.8-82.8); PLATELET COUNT 303 10^3/uL (134-434); RBC 3.98 M/mm3 (3.60-5.2); RDW 13.7 % (11.6-15.6); WHITE BLOOD COUNT 9.1 K/mm3 (4.0-10.0)
[2021-02-11 22:49] LABS: INR 1.35 (0.83-1.09); PROTHROMBIN TIME (PATIENT) 15.2 SEC (9.7-13.0)
[2021-02-11 22:52] LABS: ACTIVATED PTT 28.1 SECONDS (25.2-36.5)
[2021-02-11 22:56] LABS: EPI CELLS >36 /uL (0-25.1); HYALINE CASTS 30 /uL (0-3.1); URINE APPEARANCE CLEAR; URINE BACTERIA 35 /uL (0-1359); URINE BILIRUBIN NEGATIVE (NEGATIVE); URINE COLOR DK YELLOW; URINE GLUCOSE (UA) NEGATIVE (NEGATIVE); URINE KETONE 3+ (NEGATIVE); URINE LEUK ESTERASE 1+ (NEGATIVE); URINE NITRITE NEGATIVE (NEGATIVE); URINE PROTEIN 1+ (NEGATIVE); URINE RBC 79 /uL (0-23.9); URINE UROBILINOGEN 0.2 mg/dL (0.2-1.0); URINE WBC 77 /uL (0-25.8)
[2021-02-11 23:01] LABS: CALCIUM 9.1 mg/dL (8.5-10.1)
[2021-02-11 23:02] LABS: BLOOD UREA NITROGEN 13.3 mg/dL (7-18)
[2021-02-11 23:05] LABS: CREATININE 0.8 mg/dL (0.55-1.3)
[2021-02-11 23:06] LABS: TOT PROT 6.7 g/dl (6.4-8.2)
[2021-02-11 23:07] LABS: BILIRUBIN,TOTAL 0.7 mg/dL (0.2-1)
[2021-02-12] MEDS ORDERED: MEROPENEM 1 GM in DEXTROSE 5%-WATER 100 ML IVPB ONE (01:35)
[2021-02-12] MEDS ORDERED: MEROPENEM 1 GM VIAL (RESTRICTED TO ID) IVPB ONE ×3 (01:44→18:12)
[2021-02-12] MEDS ORDERED: KCL 10 MEQ IVPB 10 MEQ/100 ML INFUS.BAG IVPB ONE ×2 (06:01→10:16)
[2021-02-12] MEDS ORDERED: ONDANSETRON 4 MG/2 ML VIAL IVPUSH PRN (06:12)
[2021-02-12] MEDS ORDERED: MELATONIN 5 MG TABLETS PO PRN (06:12)
[2021-02-12] MEDS: KCL 10 MEQ IVPB 10 MEQ/100 ML INFUS.BAG IVPB SCH ×3 (06:15→13:00)
[2021-02-12 06:56] LABS: BASO % 0.3 % (0-2.0); EOS % 3.2 % (0-4.5); HEMATOCRIT 33.3 % (32.4-45.2); HEMOGLOBIN 11.5 GM/dL (10.7-15.3); LYMPH % 19.6 % (8-40); MCH 30.8 pg (25.7-33.7); MCHC 34.5 g/dl (32.0-36.0); MEAN CELL VOLUME 89.3 fl (80-96); MEAN PLT VOLUME 8.6 fl (7.5-11.1); MONO % 7.1 % (3.8-10.2); NEUT % 69.8 % (42.8-82.8); PLATELET COUNT 292 10^3/uL (134-434); RBC 3.73 M/mm3 (3.60-5.2); RDW 13.9 % (11.6-15.6); WHITE BLOOD COUNT 8.2 K/mm3 (4.0-10.0)
[2021-02-12] MEDS: LACTATED RINGERS SOLUTION 1,000 ML/1,000 ML INFUS.BAG IV SCH (07:10)
[2021-02-12 07:18] LABS: ALBUMIN 2.7 g/dl (3.4-5.0); BLOOD UREA NITROGEN 10.3 mg/dL (7-18); CALCIUM 8.2 mg/dL (8.5-10.1); MAGNESIUM 2.2 mg/dL (1.8-2.4)
[2021-02-12 07:21] LABS: CREATININE 0.5 mg/dL (0.55-1.3); PHOSPHOROUS 3.3 mg/dL (2.5-4.9)
[2021-02-12 07:23] LABS: BILIRUBIN,TOTAL 0.4 mg/dL (0.2-1); TOT PROT 5.7 g/dl (6.4-8.2)
[2021-02-12] MEDS ORDERED: FAMOTIDINE 20 MG TABLET ONE (10:16)
[2021-02-12] MEDS: FAMOTIDINE 20 MG TABLET PO SCH (10:30)
[2021-02-12] MEDS: MEROPENEM 1 GM in SODIUM CHLORIDE 100 ML IVPB SCH ×2 (10:30→18:08)
[2021-02-12] MEDS ORDERED: ACETAMINOPHEN INJECTION 100 ML IVPB ONE ×2 (11:08→23:33)
[2021-02-12] MEDS: ACETAMINOPHEN 1000 MG/100 ML VIAL IVPB PRN ×2 (11:20→23:41)
[2021-02-12 13:01] LABS: ERYTHROCYTE SEDIMENTATION RATE 50 mm/hr (0-30)
[2021-02-12] MEDS ORDERED: MELATONIN 5 MG TABLETS ONE (23:33)
[2021-02-13] MEDS: LACTATED RINGERS SOLUTION 1,000 ML/1,000 ML INFUS.BAG IV SCH (03:40)
[2021-02-13] MEDS: MEROPENEM 1 GM in SODIUM CHLORIDE 100 ML IVPB SCH ×3 (03:40→17:52)
[2021-02-13] MEDS ORDERED: MEROPENEM 1 GM VIAL (RESTRICTED TO ID) IVPB ONE ×3 (03:51→16:40)
[2021-02-13 06:51] VITALS: BMI 33.2
[2021-02-13 08:39] LABS: BASO % 0.3 % (0-2.0); EOS % 2.4 % (0-4.5); HEMATOCRIT 33.2 % (32.4-45.2); HEMOGLOBIN 11.5 GM/dL (10.7-15.3); LYMPH % 17.1 % (8-40); MCH 30.8 pg (25.7-33.7); MCHC 34.8 g/dl (32.0-36.0); MEAN CELL VOLUME 88.6 fl (80-96); MONO % 7.3 % (3.8-10.2); NEUT % 72.9 % (42.8-82.8); PLATELET COUNT 267 10^3/uL (134-434); RBC 3.74 M/mm3 (3.60-5.2); RDW 13.9 % (11.6-15.6); WHITE BLOOD COUNT 7.6 K/mm3 (4.0-10.0)
[2021-02-13 08:59] LABS: CALCIUM 8.7 mg/dL (8.5-10.1)
[2021-02-13 09:00] LABS: BLOOD UREA NITROGEN 7.8 mg/dL (7-18)
[2021-02-13 09:03] LABS: CREATININE 0.5 mg/dL (0.55-1.3)
[2021-02-13] MEDS ORDERED: DEXTROSE 5%-LACTATED RINGERS 1,000 ML IV SCH (09:30)
[2021-02-13] MEDS ORDERED: MEROPENEM 1 GM in SODIUM CHLORIDE 100 ML IVPB SCH (10:00)
[2021-02-13] MEDS ORDERED: SODIUM CHLORIDE 100 ML IVPB ONE ×2 (10:37→16:40)
[2021-02-13] MEDS: FAMOTIDINE 20 MG TABLET PO SCH (10:46)
[2021-02-13] MEDS: AMINO ACIDS 4.25%/D5W 1,000 ML IV SCH (20:52)
[2021-02-13] MEDS ORDERED: ACETAMINOPHEN 1000 MG/100 ML VIAL IVPB ONE (21:32)
[2021-02-14] MEDS ORDERED: SODIUM CHLORIDE 100 ML IVPB ONE ×3 (00:57→17:00)
[2021-02-14] MEDS ORDERED: MEROPENEM 1 GM VIAL (RESTRICTED TO ID) IVPB ONE ×3 (00:57→16:59)
[2021-02-14] MEDS: MEROPENEM 1 GM in SODIUM CHLORIDE 100 ML IVPB SCH ×3 (01:10→17:46)
[2021-02-14] MEDS: AMINO ACIDS 4.25%/D5W 1,000 ML IV SCH ×2 (05:39→11:45)
[2021-02-14] MEDS ORDERED: PT OWN MED DRAWER 7, Y5N ONE (09:31)
[2021-02-14] MEDS: FAMOTIDINE 20 MG TABLET PO SCH (09:47)
[2021-02-14 20:09] LABS: BASO % 0.4 % (0-2.0); EOS % 2.5 % (0-4.5); HEMATOCRIT 35.9 % (32.4-45.2); HEMOGLOBIN 12.4 GM/dL (10.7-15.3); LYMPH % 22.1 % (8-40); MCH 30.4 pg (25.7-33.7); MCHC 34.6 g/dl (32.0-36.0); MEAN CELL VOLUME 88.1 fl (80-96); MEAN PLT VOLUME 8.1 fl (7.5-11.1); MONO % 6.4 % (3.8-10.2); NEUT % 68.6 % (42.8-82.8); PLATELET COUNT 295 10^3/uL (134-434); RBC 4.08 M/mm3 (3.60-5.2); RDW 13.7 % (11.6-15.6); WHITE BLOOD COUNT 6.8 K/mm3 (4.0-10.0)
[2021-02-14 20:28] LABS: ALBUMIN 2.8 g/dl (3.4-5.0); BLOOD UREA NITROGEN 9.7 mg/dL (7-18); CALCIUM 8.7 mg/dL (8.5-10.1); MAGNESIUM 2.2 mg/dL (1.8-2.4)
[2021-02-14 20:31] LABS: CREATININE 0.5 mg/dL (0.55-1.3)
[2021-02-14 20:32] LABS: TOT PROT 6.7 g/dl (6.4-8.2)
[2021-02-14 20:34] LABS: BILIRUBIN,TOTAL 0.3 mg/dL (0.2-1)
[2021-02-15] MEDS ORDERED: MEROPENEM 1 GM VIAL (RESTRICTED TO ID) IVPB ONE ×3 (00:04→16:21)
[2021-02-15] MEDS ORDERED: SODIUM CHLORIDE 100 ML IVPB ONE ×3 (00:05→16:21)
[2021-02-15] MEDS: AMINO ACIDS 4.25%/D5W 1,000 ML IV SCH ×4 (00:50→18:00)
[2021-02-15] MEDS: MEROPENEM 1 GM in SODIUM CHLORIDE 100 ML IVPB SCH ×3 (01:05→17:46)
[2021-02-15] MEDS: FAMOTIDINE 20 MG TABLET PO SCH (10:29)
[2021-02-15 11:39] LABS: BASO % 0.5 % (0-2.0); EOS % 3.1 % (0-4.5); HEMATOCRIT 35.9 % (32.4-45.2); HEMOGLOBIN 12.5 GM/dL (10.7-15.3); LYMPH % 19.1 % (8-40); MCH 30.8 pg (25.7-33.7); MCHC 34.9 g/dl (32.0-36.0); MEAN CELL VOLUME 88.4 fl (80-96); MEAN PLT VOLUME 8.1 fl (7.5-11.1); MONO % 7.3 % (3.8-10.2); PLATELET COUNT 290 10^3/uL (134-434); RBC 4.06 M/mm3 (3.60-5.2); RDW 13.5 % (11.6-15.6); WHITE BLOOD COUNT 6.3 K/mm3 (4.0-10.0)
[2021-02-15 12:00] LABS: CALCIUM 8.9 mg/dL (8.5-10.1)
[2021-02-15 12:01] LABS: ALBUMIN 2.8 g/dl (3.4-5.0); BLOOD UREA NITROGEN 12.9 mg/dL (7-18); MAGNESIUM 2.2 mg/dL (1.8-2.4)
[2021-02-15 12:04] LABS: CREATININE 0.5 mg/dL (0.55-1.3)
[2021-02-15 12:07] LABS: BILIRUBIN,TOTAL 0.3 mg/dL (0.2-1); TOT PROT 6.6 g/dl (6.4-8.2)
[2021-02-16] MEDS ORDERED: MEROPENEM 1 GM VIAL (RESTRICTED TO ID) IVPB ONE ×3 (01:18→16:57)
[2021-02-16] MEDS ORDERED: SODIUM CHLORIDE 100 ML IVPB ONE ×3 (01:18→16:58)
[2021-02-16] MEDS: MEROPENEM 1 GM in SODIUM CHLORIDE 100 ML IVPB SCH ×3 (01:58→17:39)
[2021-02-16] MEDS: AMINO ACIDS 4.25%/D5W 1,000 ML IV SCH ×4 (06:34→23:05)
[2021-02-16 09:05] LABS: BASO % 0.7 % (0-2.0); EOS % 4.4 % (0-4.5); HEMOGLOBIN 12.5 GM/dL (10.7-15.3); LYMPH % 24.2 % (8-40); MCH 30.6 pg (25.7-33.7); MCHC 34.9 g/dl (32.0-36.0); MEAN CELL VOLUME 87.7 fl (80-96); MONO % 6.9 % (3.8-10.2); NEUT % 63.8 % (42.8-82.8); PLATELET COUNT 323 10^3/uL (134-434); RDW 13.5 % (11.6-15.6); WHITE BLOOD COUNT 7.3 K/mm3 (4.0-10.0)
[2021-02-16 09:32] LABS: CALCIUM 9.3 mg/dL (8.5-10.1)
[2021-02-16 09:33] LABS: BLOOD UREA NITROGEN 14.8 mg/dL (7-18); MAGNESIUM 2.4 mg/dL (1.8-2.4)
[2021-02-16 09:36] LABS: CREATININE 0.5 mg/dL (0.55-1.3)
[2021-02-16 09:38] LABS: BILIRUBIN,TOTAL 0.3 mg/dL (0.2-1); TOT PROT 6.7 g/dl (6.4-8.2)
[2021-02-16] MEDS: FAMOTIDINE 20 MG TABLET PO SCH (10:03)
[2021-02-17] MEDS ORDERED: MEROPENEM 1 GM VIAL (RESTRICTED TO ID) IVPB ONE ×3 (01:19→16:33)
[2021-02-17] MEDS ORDERED: SODIUM CHLORIDE 100 ML IVPB ONE ×3 (01:20→16:33)
[2021-02-17] MEDS: MEROPENEM 1 GM in SODIUM CHLORIDE 100 ML IVPB SCH ×3 (01:53→17:25)
[2021-02-17] MEDS: AMINO ACIDS 4.25%/D5W 1,000 ML IV SCH (07:36)
[2021-02-17] MEDS: FAMOTIDINE 20 MG TABLET PO SCH (10:32)
[2021-02-18] MEDS ORDERED: MEROPENEM 1 GM VIAL (RESTRICTED TO ID) IVPB ONE (01:03)
[2021-02-18] MEDS ORDERED: SODIUM CHLORIDE 100 ML IVPB ONE (01:03)
[2021-02-18] MEDS: MEROPENEM 1 GM in SODIUM CHLORIDE 100 ML IVPB SCH (01:42)
[2021-02-18 08:57] LABS: BASO % 0.9 % (0-2.0); EOS % 4.5 % (0-4.5); HEMATOCRIT 37.5 % (32.4-45.2); LYMPH % 32.6 % (8-40); MCH 30.8 pg (25.7-33.7); MCHC 34.7 g/dl (32.0-36.0); MEAN CELL VOLUME 88.6 fl (80-96); MEAN PLT VOLUME 8.5 fl (7.5-11.1); MONO % 6.9 % (3.8-10.2); NEUT % 55.1 % (42.8-82.8); PLATELET COUNT 338 10^3/uL (134-434); RBC 4.23 M/mm3 (3.60-5.2); RDW 13.8 % (11.6-15.6); WHITE BLOOD COUNT 6.3 K/mm3 (4.0-10.0)
[2021-02-18 09:16] LABS: CALCIUM 9.7 mg/dL (8.5-10.1)
[2021-02-18 09:17] LABS: BLOOD UREA NITROGEN 18.8 mg/dL (7-18); MAGNESIUM 2.4 mg/dL (1.8-2.4)
[2021-02-18 09:20] LABS: CREATININE 0.5 mg/dL (0.55-1.3)
[2021-02-18 09:21] LABS: BILIRUBIN,TOTAL 0.8 mg/dL (0.2-1); TOT PROT 6.8 g/dl (6.4-8.2)
[2021-02-18] MEDS ORDERED: metroNIDAZOLE 250 MG TABLET PO SCH (10:00)
[2021-02-18] MEDS: FAMOTIDINE 20 MG TABLET PO SCH (10:22)
[2021-02-18 14:20] VITALS: BP 120/62; PULSE 76; TEMP 98.3
[2021-02-18] MEDS ORDERED: AMOX TR/POT CLAV 875MG/125MG TABLETS (FP) PO SCH (17:30)
== END 2021-02-18 14:50 | disposition home or self-care (01) | DRG 392 ==
LOC: JER 21:32 → JERBED 02-12 01:44 → J8W 02-13 06:18
PROVIDERS: ATTEND Nurse Practitioner Acute Care
DX: K57.92 Diverticulitis of intestine, part unspecified, without perforation or abscess without bleeding (principal); N39.0 Urinary tract infection, site not specified; K56.7 Ileus, unspecified; K21.9 Gastro-esophageal reflux disease without esophagitis; G47.00 Insomnia, unspecified; K57.90 Diverticulosis of intestine, part unspecified, without perforation or abscess without bleeding; K76.0 Fatty (change of) liver, not elsewhere classified; G25.81 Restless legs syndrome; Z86.010 Personal history of colon polyps
CPT/HCPCS: 36415; 74177-TC; 80048; 80053; 81003; 82962; 83036; 83690; 83735; 84100; 85025; 85610; 85651; 85730; 86140; 86850; 86900; 86901; 87040; 87086; 87324; 87449; 93005; 93010; 99285-25; C9803; J0131; Q9967; U0003; U0005

== ENCOUNTER 2023-08-01 21:15 | Emergency (ER) | payer BC, OTHER ==
[2023-08-01 21:29] VITALS: RESP 20; BMI 33.0
[2023-08-01] MEDS: SODIUM CHLORIDE 1,000 ML IV STA (21:36)
[2023-08-01] MEDS: KETOROLAC TROMETHAMINE 30 MG/1 ML VIAL IVPUSH ONE (21:37)
[2023-08-01 21:40] LABS: HEMATOCRIT 43.9 % (32.4-45.2); HEMOGLOBIN 14.7 G/dL (10.7-15.3); MCH 30.6 pg (25.7-33.7); MCHC 33.4 g/dl (32.0-36.0); MEAN CELL VOLUME 91.7 fl (80-96); PLATELET COUNT 233.5 10^3/uL (134-434); RBC 4.79 10^6/uL (3.60-5.2); RDW 12.9 % (11.6-15.6); WHITE BLOOD COUNT 8.7 10^3/uL (4.0-10.8)
[2023-08-01 21:52] LABS: EPITHELIAL CELLS FEW /hpf
[2023-08-01 21:53] LABS: PLATELET ESTIMATE ADEQUATE
[2023-08-01 21:57] LABS: ALBUMIN 4.7 g/dl (3.4-5.0); BILIRUBIN,TOTAL 0.3 mg/dl (0.2-1); CALCIUM 9.7 mg/dl (8.5-10.1); CREATININE 0.9 mg/dl (0.6-1.3); TOT PROT 7.1 g/dl (6.4-8.2)
[2023-08-01 22:02] VITALS: BP 152/82; PULSE 72; TEMP 97.8
== END 2023-08-02 00:28 | disposition home or self-care (01) ==
LOC: FER 21:15
PROC: 3E0333Z Introduction of Anti-inflammatory into Peripheral Vein, Percutaneous Approach (ICD-10-PCS; principal; 2023-08-01)
PROC: 3E0337Z Introduction of Electrolytic and Water Balance Substance into Peripheral Vein, Percutaneous Approach (ICD-10-PCS; 2023-08-01)
DX: N23 Unspecified renal colic (principal); R10.9 Unspecified abdominal pain; R11.0 Nausea
CPT/HCPCS: 36415; 74176-TC; 80053; 81003; 81015; 85027; 87086; 99284-25